=== PATIENT | female | born 1975 | race Caucasian/White ===

== ENCOUNTER 2017-02-15 10:43 | Emergency (ER) | payer OTHER ==
[2017-02-15 12:42] LABS: % IMMATURE GRANULYOCYTES 0.2 % (0.0-1.1); ABSOLUTE IMMATURE GRANULOCYTES 0.02 10^3/uL (0.00-0.10); ADD DIFF? NO; ADD MORPH? NO; ADD SCAN? NO; ATYPICAL LYMPHOCYTE FLAG 20 (0-99); FRAGMENT RBC FLAG 0 (0-99); HEMATOCRIT 47.3 % (38.0-47.0); HEMOGLOBIN 15.7 g/dL (12.6-16.3); LEFT SHIFT FLG 0 (0-99); LIPEMIA HEMOLYSIS FLAG 80 (0-99); MEAN CELL HEMOGLOBIN CONCENTR. 33.2 g/dL (32.4-36.7); MEAN CELL VOLUME 93.5 fL (81.5-99.8); MEAN PLATELET VOLUME 11.8 fL (8.7-11.7); PLATELET CLUMPS FLAG 0 (0-99); PLATELET COUNT 247 10^3/uL (150-400); RED BLOOD CELL COUNT 5.06 10^6/uL (4.18-5.33); RED CELL DISTRIBUTION WIDTH 13.5 % (11.5-15.2)
[2017-02-15 12:48] LABS: ALANINE AMINOTRANSFERASE 19 IU/L (9-52); ALBUMIN 4.9 g/dL (3.5-5.0); ALKALINE PHOSPHATASE 86 IU/L (38-126); ANION GAP 13 mEq/L (8-16); ASPARTATE AMINOTRANSFERASE 28 IU/L (14-46); BILIRUBIN,TOTAL 0.7 mg/dL (0.1-1.4); BILIRUBIN-CONJUGATED 0.6 mg/dL (0.0-0.5); BILIRUBIN-UNCONJUGATED 0.1 mg/dL (0.0-1.1); CARBON DIOXIDE 23 mEq/l (22-31); CHLORIDE 110 mEq/L (97-110); CREATININE 0.7 mg/dL (0.6-1.0); GLOMERULAR FILTRATION RATE > 60; GLUCOSE 78 mg/dL (70-100); SODIUM 146 mEq/L (134-144); TOTAL PROTEIN 8.3 g/dL (6.3-8.2)
--- NOTE | 2017-02-15 12:51 | EDPHY ---
H & P <Fanny Dave M - Last Filed: 02/16/17 00:26> Stated Complaint: ms flare up increasing numbness and weakness Source: Patient Exam Limitations: No limitations - Personal History LMP (Females 10-55): IUD In Place Current Tetanus/Diphtheria Vaccine: Unsure - Medical/Surgical History Hx Asthma: No Hx Chronic Respiratory Disease: No Hx Diabetes: No Hx Cardiac Disease: No Hx Renal Disease: No Hx Cirrhosis: No Hx Alcoholism: No Hx HIV/AIDS: No Hx Splenectomy or Spleen Trauma: No Other PMH: ms bipolar depression addhd - Family History Significant Family History: No pertinent family hx - Social History Smoking Status: Current every day smoker Alcohol Use: Sober Drug Use: None <John Givens - Last Filed: 02/16/17 07:09> Time Seen by Provider: 02/15/17 12:00 HPI/ROS: CHIEF COMPLAINT: MS flare HISTORY OF PRESENT ILLNESS: Patient is a 41-year-old female who comes to the emergency department complaining of an MS flare. She states that last night she began having a burning sensation in her left upper back. She states that it "felt like a hot iron but did not burn". She has not had a fever. She has not had a headache. She also states that her legs feel slightly numb from waist down. This is also similar to previous MS flares. She can ambulate. She has normal strength and movement. REVIEW OF SYSTEMS: Constitutional: denies: chills, fever, recent illness, recent injury EENTM: denies: blurred vision, double vision, nose congestion Respiratory: denies: cough, shortness of breath Cardiac: denies: chest pain, irregular heart rate, lightheadedness, palpitations Gastrointestinal/Abdominal: denies: abdominal pain, diarrhea, nausea, vomiting, blood streaked stools Genitourinary: denies: dysuria, frequency, hematuria, pain Musculoskeletal: See HPI Skin: denies: lesions, rash, jaundice, bruising Neurological: denies: headache, numbness, paresthesia, tingling, dizziness, weakness Hematologic/Lymphatic: denies: blood clots, easy bleeding, easy bruising Immunologic/allergic: denies: HIV/AIDS, transplant EXAM: GENERAL: Well-appearing, well-nourished and in no acute distress. HEAD: Atraumatic, normocephalic. EYES: Pupils equal round and reactive to light, extraocular movements intact, sclera anicteric, conjunctiva are normal. ENT: TMs normal, nares patent, oropharynx clear without exudates. Moist mucous membranes. NECK: Normal range of motion, supple without lymphadenopathy or JVD. LUNGS: Breath sounds clear to auscultation bilaterally and equal. No wheezes rales or rhonchi. HEART: Regular rate and rhythm without murmurs, rubs or gallops. ABDOMEN: Soft, nontender, normoactive bowel sounds. No guarding, no rebound. No masses appreciated. BACK: No CVA tenderness, no spinal tenderness, step-offs or deformities EXTREMITIES: Normal range of motion, no pitting or edema. No clubbing or cyanosis. NEUROLOGICAL: Cranial nerves II through XII grossly intact. Normal speech, normal gait. 5/5 strength, normal movement in all extremities, normal sensation PSYCH: Normal mood, normal affect. Normal cerebellar exam, can stand on Tippy toes. Some slight Difficulty with balance SKIN: Warm, dry, normal turgor, no visible rashes or lesions. (John Givens) Constitutional: Initial Vital Signs Temperature (C) 36.9 C 02/15/17 10:48 Heart Rate 94 02/15/17 10:48 Respiratory Rate 17 02/15/17 10:48 Blood Pressure 130/78 H 02/15/17 10:48 O2 Sat (%) 98 02/15/17 10:48 O2 Delivery Mode Room Air O2 (L/minute) 2 Allergies/Adverse Reactions: Penicillins Allergy (Verified 02/15/17 10:46) Home Medications: Medication Instructions Recorded ALPRAZolam [Xanax] 2 mg PO 08/13/16 ARIPiprazole [Abilify 5 mg (*)] 15 mg PO DAILY 08/13/16 Dextroamphetamine/Amphetamine 10 mg PO DAILY PRN 08/13/16 [Adderall 10 mg Tablet] Levothyroxine [Synthroid 112 mcg 112 mcg PO DAILY06 08/13/16 (*)] Lisdexamfetamine Dimesylate 60 mg PO DAILY 08/13/16 [Vyvanse] Zolpidem Tartrate [Ambien 5MG (*)] 5 mg PO HS 08/13/16 lamoTRIgine [LamICTAL XR] 300 mg PO 08/13/16 Copaxone 02/15/17 Provigil 02/15/17 Medical Decision Making - Diagnostics Imaging: Discussed imaging studies w/ mandrel press hand Radiologist <Fanny Dave - Last Filed: 02/16/17 00:26> <John Givens - Last Filed: 02/16/17 07:09> ED Course/Re-evaluation: I spoke with Dr. Mark who is asset protection professional. The patient's primary neurologist is Dr. White. At the [place] [facility] recommended the patient come in to get a workup during the flare. Dr. Constantino monte suggested that this would include an MRI with and without of her brain, cervical and thoracic spine. Also recommended we hold off on steroids until after her imaging. 1:40 p.m. the patient is very anxious about her MRI. She had to receive conscious sedation for her previous MRI. I am unable to sedate her for an emergent MRI from the emergency department. We discussed options. She is amenable to try Ativan. She has been walking around the apartment and went to get something to eat. 3:00 p.m. the patient is in MRI. Care transferred to Dr. Fanny Dave at shift change. (John Givens) Differential Diagnosis: Partial list of the Differential diagnosis considered include but were not limited to; MS exacerbation, viral syndrome, gastroenteritis, peptic ulcer disease, biliary disease and although unlikely based on the history and physical exam, I also considered pneumonia, Guillain-[place], spinal cord compression. (John Givens) Other Provider: 1500: I assumed care of this patient at shift change from Dr. Givens. 1700: Brain MRI show increasing plaque burden and lesion in thoracic spinal cord. 1g IV Solumedrol ordered. Neurology paged. 1723: Consulted with Dr. Mark, neurology. He agrees with plan for solumedrol and outpatient neurology follow up. 1731: Discussed findings with the patient and her mother. Her MRI showed enhancing lesions, which indicates active MS. She will require daily doses of 1g IV solumedrol, which she can arrange with Dr. Mark's office. She reports she is able to walk at home and feels safe going home. I answered all her questions. She is comfortable with plan for discharge. Return precautions given. (Fanny Dave) - Data Points Laboratory Results: Laboratory Results 02/15/17 10:55 02/15/17 10:55 Medications Given: Discontinued Medications Lorazepam (Ativan Injection) 3 mg IVP EDNOW ONE Stop: 02/15/17 13:44 Last Admin: 02/15/17 14:02 Dose: 3 mg Methylprednisolone Sodium Succinate (Solu-Medrol) 1,000 mg IVP EDNOW ONE Stop: 02/15/17 16:52 Last Admin: 02/15/17 17:29 Dose: Not Given Methylprednisolone Sodium Succinate (Solu-Medrol) 1 gm IV EDNOW ONE Stop: 02/15/17 17:31 Last Admin: 02/15/17 17:27 Dose: 1 gm Departure <Fanny Dave - Last Filed: 02/16/17 00:26> <John Givens - Last Filed: 02/16/17 07:09> - Departure Disposition: Home, Routine, Self-Care Clinical Impression: Multiple sclerosis Condition: Good Instructions: Methylprednisolone (By injection) Additional Instructions: 1. You will need 1gm IV Solumedrol every 24 hours for the next 5 days. Call NIHARIKA Duncan with Dr. Mark to set up appointments to receive this medication. 2. Follow up with your neurologist as scheduled. 3. Return to the ED for any worsening of condition. Referrals: Say Dee MD [Primary Care Provider] - As per Instructions Jose Duncan PA [Physician Freight Loader] - As per Instructions
[2017-02-15] MEDS ORDERED: LORazepam 2 MG/ML INJ IVP ONE (13:43)
[2017-02-15] MEDS ORDERED: GADOBUTROL 10 ML VIAL IVP ONE (14:28)
[2017-02-15] MEDS ORDERED: methylPREDNISolone SOD SUCC 125 MG/2 ML VIAL IVP ONE (16:51)
[2017-02-15] MEDS ORDERED: methylPREDNISolone SOD SUCC 1 GM/8 ML VIAL IV ONE (17:30)
[2017-02-15 18:05] VITALS: BP 128/78; PULSE 82; RESP 18; TEMP 98.1; O2SAT 96
== END 2017-02-15 18:05 | disposition home or self-care (01) ==
DX: G35 Multiple sclerosis (principal); F17.200 Nicotine dependence, unspecified, uncomplicated
CPT/HCPCS: 96374; A9585; J2060; J2930

== ENCOUNTER 2017-02-16 18:58 | Emergency (ER) | payer OTHER ==
[2017-02-16 19:14] VITALS: RESP 16; O2SAT 95
--- NOTE | 2017-02-16 19:16 | EDPHY ---
H & P Stated Complaint: steroid infusion Time Seen by Provider: 02/16/17 19:15 - Personal History LMP (Females 10-55): IUD [address] Current Tetanus/Diphtheria Vaccine: Unsure Current Tetanus Diphtheria and Acellular Pertussis (TDAP): Unsure - Medical/Surgical History Hx Asthma: No Hx Chronic Respiratory Disease: No Hx Diabetes: No Hx Cardiac Disease: No Hx Renal Disease: No Hx Cirrhosis: No Hx Alcoholism: No Hx HIV/AIDS: No Hx Splenectomy or Spleen Trauma: No Other PMH: ms bipolar depression addhd - Social History Smoking Status: Current every day smoker Constitutional: Initial Vital Signs Temperature (C) 37.5 C 02/16/17 19:12 Heart Rate 95 02/16/17 19:12 Respiratory Rate 16 02/16/17 19:12 Blood Pressure 114/73 02/16/17 19:12 O2 Sat (%) 95 02/16/17 19:12 O2 Delivery Mode Room Air Allergies/Adverse Reactions: Penicillins Allergy (Verified 02/16/17 19:10) Home Medications: Medication Instructions Recorded ALPRAZolam [Xanax] 2 mg PO 08/13/16 ARIPiprazole [Abilify 5 mg (*)] 15 mg PO DAILY 08/13/16 Levothyroxine [Synthroid 112 mcg 112 mcg PO DAILY06 08/13/16 (*)] Lisdexamfetamine Dimesylate 60 mg PO DAILY 08/13/16 [Vyvanse] Zolpidem Tartrate [Ambien 5MG (*)] 5 mg PO HS 08/13/16 lamoTRIgine [LamICTAL XR] 300 mg PO 08/13/16 Copaxone 02/15/17 Provigil 02/15/17 Medical Decision Making ED Course/Re-evaluation: CHIEF COMPLAINT: MS flare-up HISTORY OF PRESENT ILLNESS: This patient is a 41-year-old female with history of MS who presents to the Emergency Department requesting a steroid infusion to treat a MS flare-up beginning Tuesday evening. Her flare presented with new onset burning paresthesias to her back and bilateral paresthesias to both legs. She was seen yesterday in the ED and started on steroid infusion at that time and was told to return for subsequent treatment today. She has no new complaints. She has had recent MRI of brain and cervical spine and is followed regularly by Dr. White, neurologist. REVIEW OF SYSTEMS: A 10 point review of systems was performed and is negative with the exception of the elements mentioned in the history of present illness. PHYSICAL EXAM: General Appearance: Alert, well hydrated, appropriate, and non-toxic appearing. Head: Atraumatic without scalp tenderness or obvious injury Eyes: Pupils equal, round, reactive to light and accommodation, EOMI, no trauma , no injection. Ears: Clear bilaterally, no perforation, normal landmarks Nose: Atraumatic, no rhinorrhea, clear. Throat: There is no erythema or exudates, no lesions, normal tonsils, mucus membranes moist. Neck: Supple, 2+ carotid upstroke, nontender, no lymphadenopathy. Respiratory: No retractions, no distress, no wheezes, and no accessory muscle use. Lungs are clear to auscultation bilaterally. Cardiovascular: Regular rate and rhythm, no murmurs, rubs, or gallops. Bilateral carotid, radial, dorsalis pedis, and posterior tibial pulses intact. Good capillary refill all extremities. Gastrointestinal: Abdomen is soft, nontender, non-distended, no masses, no rebound, no guarding, no peritoneal signs. Musculoskeletal: Normal active ROM of all extremities, atraumatic. Neurological: Alert, appropriate, and interactive. The patient has normal DTRs and non-focal cranial nerves, motor, sensory, and cerebellar exam. Skin: No rashes, good turgor, no nodules on palpation. Past medical history: MS, depression, bipolar disorder Past surgical history: Denies Family history: Non-contributory Social history: MEDICAL DECISION MAKING: This 41-year-old female with MS presents as instructed by her neurologist, Dr. White, requesting IV administration of steroids to treat MS flare. She was seen yesterday and received her first dose of 1gm IV prednisolone. She presents today with no acute complaints. Her exam is benign. Will proceed with administration of steroids as requested. IV established. 1gm IV prednisolone administered. The patient was discharged home in good condition following treatment with instructions to continue the treatment plan as instructed by Dr. White. Departure - Departure Disposition: Home, Routine, Self-Care Clinical Impression: Multiple sclerosis Condition: Good Instructions: Prednisolone (By injection), Autoimmune Disease (ED) Additional Instructions: Return to the ER for additional steroids as directed by your neurologist. Follow -up with Dr. White for further evaluation and treatment if your symptoms persist. Referrals: Say Dee MD [Primary Care Provider] - As per Instructions
[2017-02-16] MEDS ORDERED: methylPREDNISolone SOD SUCC 1 GM in NS 100 ML IV ONE (19:20)
[2017-02-16 20:23] VITALS: BP 118/76; PULSE 81; TEMP 96.8
== END 2017-02-16 20:32 | disposition home or self-care (01) ==
DX: G35 Multiple sclerosis (principal); F17.200 Nicotine dependence, unspecified, uncomplicated
CPT/HCPCS: 96365; J2930

== ENCOUNTER 2017-02-17 13:57 | Emergency (ER) | payer OTHER ==
[2017-02-17] MEDS ORDERED: methylPREDNISolone SOD SUCC 125 MG/2 ML VIAL IVP ONE (15:11)
--- NOTE | 2017-02-17 15:20 | EDPHY ---
H & P Time Seen by Provider: 02/17/17 14:52 HPI/ROS: CHIEF COMPLAINT: Here for IV infusion of Solu-Medrol HISTORY OF PRESENT ILLNESS: 41-year-old female history of multiple sclerosis presents to the emergency department for dose 3. Of 3 of Solu-Medrol 1 g IV for acute multiple sclerosis flare. She is followed by Dr. Wilber WhiteNeurologarian. She has had recent MRI and cervical spine. She denies acute complaints. She does complain of numbness from the chest distally and memory issues. Denies headache. Denies nausea or. REVIEW OF SYSTEMS: A ten point review of systems was performed and is negative with the exception of the items mentioned in the HPI PAST MEDICAL & SURGICAL HISTORY: Multiple sclerosis SOCIAL HISTORY: Nonsmoker PHYSICAL EXAM (Prior to examination, patient consented to physical exam, hands were washed and my usual and customary physical exam procedures followed) 1) GENERAL: Well-developed, well-nourished, alert and oriented. Answering questions appropriately. 2) HEAD: Normocephalic, atraumatic 3) HEENT: . Sclera anicteric. 4) NECK: Full range of motion 5) LUNGS: Breathing comfortably 6) HEART: Regular rate and rhythm 7) ABDOMEN: No guarding, 8) MUSCULOSKELETAL: Moving all extremities 9)SKIN: No rash, no petechiae. 10) Psychiatric: Patient is oriented X 3, there is no agitation. DIFFERENTIAL DIAGNOSIS: in no particular include but limited to multiple sclerosis flare, relapsing remitting multiple sclerosis, progressive multiple sclerosis Smoking Status: Current every day smoker Constitutional: Initial Vital Signs Temperature (C) 37.1 C 02/17/17 14:18 Heart Rate 62 02/17/17 14:18 Respiratory Rate 15 02/17/17 14:18 Blood Pressure 116/57 L 02/17/17 14:18 O2 Sat (%) 98 02/17/17 14:18 O2 Delivery Mode Room Air Allergies/Adverse Reactions: Penicillins Allergy (Verified 02/16/17 19:10) Home Medications: Medication Instructions Recorded ALPRAZolam [Xanax] 2 mg PO 08/13/16 ARIPiprazole [Abilify 5 mg (*)] 15 mg PO DAILY 08/13/16 Levothyroxine [Synthroid 112 mcg 112 mcg PO DAILY06 08/13/16 (*)] Lisdexamfetamine Dimesylate 60 mg PO DAILY 08/13/16 [Vyvanse] Zolpidem Tartrate [Ambien 5MG (*)] 5 mg PO HS 08/13/16 lamoTRIgine [LamICTAL XR] 300 mg PO 08/13/16 Copaxone 02/15/17 Provigil 02/15/17 MDM/Departure - [facility] ED Course/Re-evaluation: This patient has received dose 3 of 3 of Solu-Medrol 1 g IV and will have the home health nurse follow-up tomorrow and will follow up with Dr. Eric White. - Depart Disposition: Home, Routine, Self-Care Clinical Impression: Multiple sclerosis Condition: Good Instructions: Autoimmune Disease (ED) Referrals: Eric White MD [Medical Doctor] - 1-2 days without fail
[2017-02-17] MEDS ORDERED: methylPREDNISolone SOD SUCC 1 GM in D5W 100 ML IV ONE (16:00)
[2017-02-17 17:11] VITALS: BP 122/69; PULSE 82; RESP 18; TEMP 97.7; O2SAT 96
== END 2017-02-17 17:10 | disposition home or self-care (01) ==
DX: G35 Multiple sclerosis (principal); F17.200 Nicotine dependence, unspecified, uncomplicated
CPT/HCPCS: 96365; J2930

== ENCOUNTER 2017-03-02 11:32 | Inpatient (IN) | payer OTHER ==
--- NOTE | 2017-03-02 12:41 | EDPHY ---
H & P Stated Complaint: ms flare up/bladder incontinence/trouble moving legs Time Seen by Provider: 03/02/17 12:38 HPI/ROS: CHIEF COMPLAINT: Leg numbness, inability to walk. HISTORY OF PRESENT ILLNESS: The patient is a 41-year-old female with a history of multiple sclerosis who presents with lower extremity numbness and weakness as well as abdominal numbness to the level of the xiphoid. Patient began having difficulty walking without assistance 2 days ago. This is similar in nature to her previous flare-ups, which often consist of numbness in her lower extremities, however, this is the 1st time she has had inability to walk without assistance. Her last flare-up was 2-3 weeks ago, consisting only of numbness, and she improved with 3 days of steroid injections. She was able to walk on her own at that time but is unable to today. She admits associated urinary incontinence. She describes 3 episodes of thoracic back pain and vomiting last week that she has been treating successfully with Gabapentin. No fever, chills, chest pain, shortness of breath, palpitations, vomiting, diarrhea , headache, lightheadedness. REVIEW OF SYSTEMS: Aside from elements discussed in the HPI, a comprehensive 10-point review of systems was reviewed and is negative. PAST MEDICAL HISTORY: Multiple sclerosis. SOCIAL HISTORY: Nonsmoker. VITAL SIGNS: Reviewed by me GENERAL: Well-developed, well-nourished, resting comfortably in no respiratory distress. HEENT: Atraumatic. Eyes: No icterus, no injection. Mouth: moist mucous membranes. No erythema or lesions. Neck: supple with no adenopathy. LUNGS: Clear to auscultation bilaterally, no wheezes, rhonchi or rales. CARDIAC: Regular rate and rhythm, no rubs, murmurs or gallops. ABDOMEN: Soft, nontender, nondistended, bowel sounds normal. BACK: No CVA tenderness. EXTREMITIES: No trauma. No edema. Range of motion is normal throughout. NEURO: Alert and oriented x3. Motor strength 5/5 in the upper extremities. Sensation is normal in the upper extremities. Cranial nerves 2-12 are intact. Patient has numbness from the level of the xiphoid distally. In her lower extremities her strength is 2/5 in right lower extremity, 1/5 in left lower extremity. SKIN: Warm and dry, no rash. PSYCHIATRIC: Normal mentation, no agitation. Portions of this note were transcribed by a medical support assistant. I personally performed a history, physical exam, medical decision making, and confirmed accuracy of information the transcribed note. Source: Patient Exam Limitations: No limitations - Personal History LMP (Females 10-55): IUD In Place Current Tetanus/Diphtheria Vaccine: Unsure - Medical/Surgical History Hx Asthma: No Hx Chronic Respiratory Disease: No Hx Diabetes: No Hx Cardiac Disease: No Hx Renal Disease: No Hx Cirrhosis: No Hx Alcoholism: No Hx HIV/AIDS: No Hx Splenectomy or Spleen Trauma: No Other PMH: ms bipolar depression addhd - Social History Smoking Status: Current every day smoker Constitutional: Initial Vital Signs Temperature (C) 36.6 C 03/02/17 11:36 Heart Rate 98 03/02/17 11:36 Respiratory Rate 20 03/02/17 11:36 Blood Pressure 121/79 H 03/02/17 11:36 O2 Sat (%) 99 03/02/17 11:36 O2 Delivery Mode Room Air Allergies/Adverse Reactions: Penicillins Allergy (Verified 03/02/17 11:35) Home Medications: Medication Instructions Recorded Zolpidem Tartrate [Ambien 5MG (*)] 5 mg PO HS 08/13/16 Glatiramer Acetate [Copaxone] 40 mg SQ Q2D 02/15/17 Modafinil [Provigil 100 mg (*)] 200 mg PO DAILY 02/15/17 ARIPiprazole [Abilify] 15 mg PO HS 03/02/17 Acetaminophen [Tylenol 325mg (*)] 325 mg PO DAILY PRN 03/02/17 Gabapentin [Neurontin 100 MG (*)] 100 mg PO BID@08,12 03/02/17 Gabapentin [Neurontin 300 MG (*)] 300 mg PO HS 03/02/17 Levothyroxine [Synthroid 125 mcg 125 mcg PO DAILY06 03/02/17 (*)] Lisdexamfetamine Dimesylate 70 mg PO DAILY 03/02/17 [Vyvanse] Nicotine Polacrilex [Nicorette] 4 mg BC PRN PRN 03/02/17 lamoTRIgine [LamICTAL 100 MG (*)] 300 mg PO HS 03/02/17 Medical Decision Making ED Course/Re-evaluation: 41-year-old female with multiple sclerosis presents with progressively worsening leg numbness and urinary incontinence for the past 2-3 days. Her most recent flare-up consisted of numbness of her lower extremities without weakness or urinary incontinence. This was 2 weeks ago. On exam she has 2/5 movement in her RLE and 1/5 in the left. She is numb below her xiphoid process. Her neurologist has been paged. An IV was established. 1gm IV Solu-Medrol administered. 1326: Consulted with Dr. Souza, neurology. He recommends steroid treatment and admission. 1433: Consulted with Dr. Miller, hospitalist. She accepts admission. Differential Diagnosis: Differential diagnoses for the patient's symptom complex was considered including but not limited to multiple sclerosis flare, Guillain-[place], disc herniation, electrolyte abnormality, infection.. - Data Points Medications Given: Discontinued Medications Methylprednisolone Sodium Succinate 1 gm/ Sodium Chloride 108 mls @ 108 mls/hr IV EDNOW ONE Stop: 03/02/17 13:57 Last Admin: 03/02/17 13:46 Dose: 108 mls Lorazepam (Ativan Injection) 1 - 3 mg IVP ONCE ONE Stop: 03/02/17 16:46 Last Admin: 03/02/17 17:08 Dose: 2 mg Departure - Departure Disposition: [facility] Inpatient Acute Clinical Impression: Multiple sclerosis exacerbation, Inability to walk, Lower extremity numbness Weakness of lower extremity Qualifiers: Laterality: bilateral Qualified Code(s): R29.898 - Other symptoms and signs involving the musculoskeletal system Condition: Fair Report Scribed for: Fanny Dave Report Scribed by: Bishop Malik Date of Report: 03/02/17 Time of Report: 12:42
[2017-03-02] MEDS ORDERED: methylPREDNISolone SOD SUCC 1 GM in NS 100 ML IV ONE (12:58)
[2017-03-02 13:50] LABS: % IMMATURE GRANULYOCYTES 0.4 % (0.0-1.1); ABSOLUTE IMMATURE GRANULOCYTES 0.04 10^3/uL (0.00-0.10); ADD DIFF? NO; ADD MORPH? NO; ADD SCAN? NO; ATYPICAL LYMPHOCYTE FLAG 10 (0-99); FRAGMENT RBC FLAG 0 (0-99); HEMATOCRIT 47.4 % (38.0-47.0); LEFT SHIFT FLG 0 (0-99); LIPEMIA HEMOLYSIS FLAG 90 (0-99); MEAN CELL HEMOGLOBIN 31.1 pg (27.9-34.1); MEAN CELL HEMOGLOBIN CONCENTR. 33.8 g/dL (32.4-36.7); MEAN PLATELET VOLUME 11.4 fL (8.7-11.7); PLATELET CLUMPS FLAG 0 (0-99); PLATELET COUNT 201 10^3/uL (150-400); RED BLOOD CELL COUNT 5.15 10^6/uL (4.18-5.33)
[2017-03-02 14:16] LABS: ANION GAP 13 mEq/L (8-16); CALCIUM 9.8 mg/dL (8.5-10.4); CARBON DIOXIDE 19 mEq/l (22-31); CHLORIDE 107 mEq/L (97-110); CREATININE 0.8 mg/dL (0.6-1.0); GLOMERULAR FILTRATION RATE > 60; GLUCOSE 87 mg/dL (70-100); POTASSIUM 4.7 mEq/L (3.5-5.2); SODIUM 139 mEq/L (134-144); SPECIMEN HEMOLYSIS 125
[2017-03-02] MEDS ORDERED: ACETAMINOPHEN 325 MG TAB PO PRN (14:46)
[2017-03-02] MEDS ORDERED: ONDANSETRON 4 MG/2 ML VIAL IVP PRN (14:46)
[2017-03-02] MEDS ORDERED: ONDANSETRON DISINTEGRATING 4 MG TAB PO PRN (14:46)
[2017-03-02] MEDS ORDERED: NICOTINE 14 MG/24 HR PATCH TD SCH (16:15)
[2017-03-02] MEDS ORDERED: NICOTINE POLACRILEX 2 MG GUM B PRN (16:21)
[2017-03-02] MEDS ORDERED: LORazepam 2 MG/ML INJ IVP ONE (16:45)
[2017-03-02] MEDS: GABAPENTIN 100 MG CAP PO SCH (17:06)
[2017-03-02] MEDS ORDERED: GADOBUTROL 10 ML VIAL IVP ONE (17:49)
--- NOTE | 2017-03-02 19:44 | GHP ---
[f rep st] HISTORY AND PHYSICAL DATE OF ADMISSION: 03/02/2017 CHIEF COMPLAINT: Left leg numbness. Falls. HISTORY OF PRESENT ILLNESS: A 41-year-old female with a history of multiple sclerosis presenting wi th lower extremity numbness and weakness, along with abdominal numbness to the xiphoid. She began h aving difficulty walking without assistance 2 days ago. This was similar to prior flare-ups in [facility] she has numbness in her legs. This is the first time she had so many problems walking. She had 2 falls yesterday and she was using her cane both times. The first one was inside holding onto the c ounter when she fell on her buttocks. The second time she when was outside and fell back on a step. Did not hit her head. Scraped her elbows. Her last flare was 2-3 weeks ago consisting of only numbness. She completed 3 days of steroids, the last being on 02/17/2017. After that, she was able to walk, but was wobbly, using either a cane or walker. She has had urinary incontinence. She described a severe thoracic back pain, like an iron being heated and stuck under her shoulder blades. She has had intermittent uncontrollable vomiting . Denies any fevers, chills, or sweats. Has felt hot. The patient has been under lot of stress. She is recently going through a divorce and has lost her job. REVIEW OF SYSTEMS: I completed a 10-point review of systems. Negative, except as noted in HPI. PAST MEDICAL HISTORY: Multiple sclerosis. PAST SURGICAL HISTORY: None. SOCIAL HISTORY: She lives in [place]. She is getting . Has a 12-year-old son. Smokes re gularly. No alcohol or illicits. FAMILY HISTORY: Maternal grandfather with colon cancer. Paternal grandfather with a heart attack. Dad healthy. ALLERGIES: Penicillin. HOME MEDICATIONS: Nicotine patch, Tylenol as needed, Abilify 50 mg q.h.s., levothyroxine 125 mcg, L amictal 300 mg q.h.s., Ambien 5 mg q.h.s., Provigil 200 mg daily, Vyvanse 70 mg daily, gabapentin 30 0 mg q.h.s., 100 mg p.o. b.i.d. (8 and 12). PHYSICAL EXAM: VITAL SIGNS: Temperature 37, blood pressure 115/66, heart rate 75, respirations 16, 97% on room air. GENERAL: The patient is groggy, just underwent MRI and was dosed 2 mg of Ativan. HEENT: PERRLA. EOMI. Oropharynx clear. CV: Regular rate and rhythm. No murmurs, gallops, rub s. LUNGS: Clear to auscultation bilaterally. ABDOMEN: Soft. Minimal sensation to touch. Positi ve bowel sounds. : No Nice. MUSCULOSKELETAL: 0/5 lower extremity strength. NEURO: Cranial n erves II through XII intact. No sensation to touch from xiphoid to the dorsum of foot. She has min imal sensation in her toes upon touch. PSYCH: Alert and oriented x3. Groggy and slow in answering questions. LABS: WBC 9, hemoglobin 16, hematocrit 47, platelets 201. Sodium 139, potassium 4.7 chloride 107, carbon dioxide 19, creatinine 0.8, glucose 87, calcium 9.8. ASSESSMENT AND PLAN: 1. Multiple sclerosis pseudo flare versus flare: Patient was evaluated by Dr. Souza with Neurology. She has had increased stressors, including going through a divorce and job loss, that may have trig gered the symptoms. She had an MRI performed that showed signal intensity at T8-T9 without enhancem ent. MRI here today demonstrates new demyelinating plaque extending from T2 through T4. Will treat as a flare with Solu-Medrol 1 g daily for 3 days. Have PT/OT work with her while here. 2. Neuropathy: Can up-titrate gabapentin to 300 mg t.i.d. Patient declined at this time. 3. Tobacco abuse: Nicorette gum. Nicotine patch as needed. She has bad dreams with a patch. 4. Falls: Secondary to weakness given acute flare. PT/OT. 5. Diet: Regular. 6. Deep venous thrombosis prophylaxis: Lovenox. DISPOSITION: Patient warrants inpatient admission given acute MS flare warranting IV steroids, PT/O T to prevent subsequent falls and risk of further injury. /[id number]/MODL
[2017-03-02] MEDS: ZOLPIDEM TARTRATE 5 MG TAB PO SCH (21:46)
[2017-03-02] MEDS: lamoTRIgine 100 MG TAB PO SCH (21:47)
[2017-03-02] MEDS: GABAPENTIN 300 MG CAP PO SCH (21:47)
--- NOTE | 2017-03-02 22:00 | GCON ---
[f rep st] CONSULTATION NEUROLOGY CONSULTATION DATE OF CONSULTATION: 03/02/2017 TIME SPENT: 70 total minutes on the floor today reviewing her outpatient records, recent inpatient records, in direct examination counseling with the patient, including reviewing MRI images with her. CHIEF COMPLAINT: Multiple sclerosis. HISTORY OF PRESENT ILLNESS: The patient is a very pleasant 41-year-old lady originally from [place] who has lived in [place] for many years now. She has a diagnosis of multiple sclerosis and is managed by my colleague as an outpatient. NIHARIKA Eaton and Dr. Eric White. She is on Copaxone 40 mg 3 days a week subcutaneously. She is in the process of being switched to [employer] for disease modifying therapy. Her outpatient neurology providers are currently going to through the preauthorization process. She had some decline starting weeks ago in the setting of severe stress including her letting her know that he is requesting divorce, and most recently, she lost her job of 7 or 8 years just yesterday I believe. She had done well from her recent evaluation at the end of January, with IV steroids but then started declining again 5 days ago. She started vomiting initially with spikes of neurogenic pain, but ultimately developed numbness from below her breasts down to both legs, along with weakness to the point where she was unable to ambulate and started having urinary incontinence. Therefore, she was advised came to the emergency department. Her MRIs just 2 weeks ago showed 3 small new enhancing lesions in her brain. No lesions in her cervical spine, and an old lesion in her thoracic spine at T8-T9. She is very clear that she has a sensory level beginning right below her breast and above her umbilicus, along with bilateral lower extremity weakness and numbness maximal in the left leg. REVIEW OF SYSTEMS: Ten-point review of system was done only pertinent to HPI. PAST MEDICAL HISTORY: Multiple sclerosis, hypothyroidism, bipolar disorder, unexplained uveitis in the past. HOME MEDICATIONS: Includes Copaxone 40 mg 3 times a week, gabapentin started recently for neurogenic pain, Abilify, Ambien, Lamictal, Provigil, Vyvanse. PHYSICAL EXAMINATION: VITAL SIGNS: 115/66 blood pressure, afebrile at 36.3, O2 sats 97%, heart rate 75, regular. GENERAL: No acute distress. Very pleasant lady, higher mental function. She is awake and alert, has no obvious cognitive abnormalities. No aphasia. NEUROLOGIC: Cranial nerve exam normal 2 through 7, 11, and 12. She has no efferent pupillary defect. No internuclear ophthalmoplegia. On motor exam, she has significant weakness in her lower extremities. At her anterior tibialis they are 1 to 2/5 bilaterally, worse in the left anterior tibialis. With hip extension she can lift it against gravity minimally. She has negative plantar reflex bilaterally present, 1+ at the ankles bilaterally and 2+ at the knees bilaterally. In her upper extremities, she has normal tone strength and reflexes in both arms. On sensory exam, she has a sensory level around T7, with loss of light touch in a bandlike distribution around dermatome level T7 downward. Coordination normal in upper extremities. IMPRESSION/PLAN: 1. Multiple sclerosis. 2. Subacute sensory-motor decline in lower extremities. 3. T7-T8 sensory level This patient has an established diagnosis of multiple sclerosis. Her recent extensive MRI evaluation on February 15, 2017 revealed an old plaque at the level of T8-T9. Therefore, the question is whether this is a pseudo-exacerbation from the enormous amounts of stress she has been under along with increased temperature, as her home has been very hot according to patient, or is this a new lesion in the thoracic cord. This would localize to the T7 and T8 region. This was discussed at length with the patient. She received 1 g of Solu-Medrol in the Emergency Department. We will complete a 3 day course giving her 1 g daily for the next two days. She will need deep venous thrombosis prophylaxis and gastrointestinal prophylaxis, as she is nonambulatory now. We will continue gabapentin as prescribed. If she has increased neuropathic pain, we can increase to 300 mg three times daily. We discussed potential risks, benefits, alternatives of this dosage increase. We will check a thoracic MRI with and without contrast. I have written for a 1 time dose of intravenous lorazepam as she has claustrophobia. We will involve occupational therapy and physical therapy for aggressive therapies with her. I will follow up on all of the above. Please do not hesitate to call me with any questions about my thoughts or findings regarding this very pleasant patient. We will follow along. Thank you for this consultation. /[id number]/MODL MTDD
[2017-03-02] MEDS: ARIPIPRAZOLE 15 MG PO SCH (22:19)
[2017-03-02 22:53] LABS: COLOR YELLOW; LEUKOCYTE ESTERASE,URINE TRACE (NEGATIVE); NITRITE,URINE NEGATIVE (NEGATIVE)
[2017-03-02 23:00] LABS: BACTERIA 2+ /hpf (NONE SEEN); MUCUS TRACE /lpf (NONE-1+); RBC,URINE 50-182 /hpf (0-3); WBC,URINE 15-25 /hpf (0-3)
[2017-03-03 05:26] LABS: ANION GAP 8 mEq/L (8-16); CALCIUM 9.7 mg/dL (8.5-10.4); CARBON DIOXIDE 21 mEq/l (22-31); CHLORIDE 109 mEq/L (97-110); CREATININE 0.7 mg/dL (0.6-1.0); GLOMERULAR FILTRATION RATE > 60; GLUCOSE 153 mg/dL (70-100); POTASSIUM 4.1 mEq/L (3.5-5.2); SODIUM 138 mEq/L (134-144)
[2017-03-03] MEDS: LEVOTHYROXINE 125 MCG TAB PO SCH (08:01)
[2017-03-03] MEDS: GABAPENTIN 100 MG CAP PO SCH ×2 (08:01→14:23)
[2017-03-03] MEDS: Lisdexamfetamine Dimesylate [Vyvanse] 70 MG PO SCH (09:40)
[2017-03-03] MEDS: ENOXAPARIN 40 MG/0.4 ML SYR SC SCH (09:41)
[2017-03-03] MEDS: MODAFINIL 100 MG TAB PO SCH (09:41)
[2017-03-03] MEDS: methylPREDNISolone SOD SUCC 1 GM in D5W 100 ML IV SCH (09:42)
--- NOTE | 2017-03-03 13:40 | HOSPPROG ---
Hospitalist Progress Note Assessment/Plan: 41y female with c/o weakness. This is my first encounter. Chart reviewed. #MS flare cont IV steroids D#2/3 inpt rehab eval #Weakness needs rehab #Neuropathy stable #Tobacco cessation education #Dispo significant stressors d/w Cm rec social work consult DC in am after steroids Home with [facility] vs inpt rehab Subjective: Tearful. Frustrated. No pain. Objective: Vital Signs Temp Pulse Resp BP Pulse Ox 36.9 C 90 18 119/66 96 03/03/17 11:58 03/03/17 11:58 03/03/17 11:58 03/03/17 11:58 03/03/17 11:58 Laboratory Results 03/03/17 04:55 03/02/17 03/03/17 03/04/17 05:59 05:59 05:59 Intake Total 400 Output Total 210 Balance 190 - Physical Exam Constitutional: appears nourished, not in pain, other (tearful) Ears, Nose, Mouth, Throat: moist mucous membranes, hearing normal, ears appear normal Cardiovascular: No JVD, No tachycardia, No bradycardia Respiratory: no respiratory distress, no rales or rhonchi, reduced air movement Gastrointestinal: No tenderness, No ascites, No guarding Skin: warm, normal color, No erythema Musculoskeletal: normal joint ROM, no joint effusions, generalized weakness Neurologic: AAOx3 Psychiatric: not encephalopathic, thought process linear, anxious ICD10 Worksheet Patient Problems: Problems Problem Status Onset Multiple sclerosis exacerbation Acute Inability to walk Acute Lower extremity numbness Acute Weakness of lower extremity Acute
--- NOTE | 2017-03-03 15:57 | NEUROPROG ---
Assessment: 1. Multiple sclerosis 2. Multiple sclerosis relapse with new thoracic cord lesion, enhancing 35 total minutes floor time; over 50% counseling regarding the patient's MRI of her thoracic spine showing an enhancing lesion from T2-T4 explaining her subacute paraplegia with sensory level. Because of the severity of her deficit in localization to the thoracic spinal cord, we will extend her IV steroids to a total of 5 days of Solu-Medrol 1 g daily. Discussed this at length with patient. She will continue gabapentin for neurogenic pain. I have added NMO antibodies to check for neuromyelitis optica. Her primary neurologist will follow up with this as an outpatient. I directly signed out to her outpatient provider today. Recommendations: 1. Consider adding GI prophylaxis, such as Protonix 40 mg daily while on steroids 2. We are looking into placement inpatient rehab as soon as possible. She can finish IV steroids in inpatient rehabilitation if she can get to rehab prior to Tuesday. 3. DVT prophylaxis 4. Continue aggressive PT and OT while an inpatient here Subjective: No new symptoms, some mild improvement in the lower extremities She was able to walk today with assistance and take a shower. Objective: Vital Signs Temp Pulse Resp BP Pulse Ox 36.9 C 90 18 119/66 96 03/03/17 11:58 03/03/17 11:58 03/03/17 11:58 03/03/17 11:58 03/03/17 11:58 Laboratory Results 03/03/17 04:55 03/02/17 03/03/17 03/04/17 05:59 05:59 05:59 Intake Total 400 Output Total 210 Balance 190 Awake and alert No upper extremity or bulbar abnormalities Patient has lower extremity weakness, maximal left 2/5 right anterior tibialis, 3/5 left anterior tibialis Allergies/Adverse Reactions: Penicillins Allergy (Verified 03/02/17 11:35)
[2017-03-03] MEDS: GABAPENTIN 300 MG CAP PO SCH (20:12)
[2017-03-03] MEDS: ARIPIPRAZOLE 15 MG PO SCH (20:12)
[2017-03-03] MEDS: ZOLPIDEM TARTRATE 5 MG TAB PO SCH (20:12)
[2017-03-03] MEDS: lamoTRIgine 100 MG TAB PO SCH (20:12)
[2017-03-03] MEDS ORDERED: Glatiramer Acetate [Copaxone] 40 MG SQ SCH (21:00)
[2017-03-04 07:37] VITALS: TEMP 98
[2017-03-04] MEDS: MODAFINIL 100 MG TAB PO SCH (07:52)
[2017-03-04] MEDS: LEVOTHYROXINE 125 MCG TAB PO SCH (07:52)
[2017-03-04] MEDS: GABAPENTIN 100 MG CAP PO SCH ×2 (07:52→12:57)
[2017-03-04] MEDS: ENOXAPARIN 40 MG/0.4 ML SYR SC SCH (07:52)
[2017-03-04] MEDS: Lisdexamfetamine Dimesylate [Vyvanse] 70 MG PO SCH (08:28)
[2017-03-04] MEDS: methylPREDNISolone SOD SUCC 1 GM in D5W 100 ML IV SCH (08:28)
[2017-03-04] MEDS ORDERED: MAGNESIUM HYDROXIDE 30 ML UDCUP PO PRN (10:59)
[2017-03-04] MEDS ORDERED: POLYETHYLENE GLYCOL 3350 17 GM PKT PO PRN (10:59)
[2017-03-04] MEDS ORDERED: BISACODYL 10 MG SUPP PR PRN (10:59)
[2017-03-04] MEDS ORDERED: LACTULOSE 20 GM/30 ML UDCUP PO PRN (10:59)
[2017-03-04 12:18] VITALS: BP 127/58; PULSE 60; RESP 16; O2SAT 98
--- NOTE | 2017-03-04 14:21 | HOSPPROG ---
Hospitalist Progress Note Assessment/Plan: 41y female with c/o weakness. #MS flare cont IV steroids D#3/5 inpt rehab eval #Weakness needs rehab #Neuropathy stable #Tobacco cessation education #Dispo significant stressors d/w Cm rec social work consult DC to inpt rehab when insurance auth done Subjective: Tearful. Frustrated. Still having numbness. Objective: Vital Signs Temp Pulse Resp BP Pulse Ox 36.7 C 60 16 127/58 H 98 03/04/17 12:00 03/04/17 12:00 03/04/17 12:00 03/04/17 12:00 03/04/17 12:00 Laboratory Results 03/03/17 04:55 03/03/17 03/04/17 03/05/17 05:59 05:59 05:59 Intake Total 400 358 Output Total 210 400 Balance 190 -42 - Physical Exam Constitutional: appears nourished, chronically ill appearing, uncomfortable Eyes: PERRL, anicteric sclera, EOMI Ears, Nose, Mouth, Throat: moist mucous membranes, hearing normal, ears appear normal Cardiovascular: No JVD, No tachycardia, No edema Respiratory: no respiratory distress, no rales or rhonchi, reduced air movement Gastrointestinal: No tenderness, No ascites, No guarding Skin: warm, normal color, No erythema Musculoskeletal: no joint effusions, pain with ROM, generalized weakness Neurologic: AAOx3 Psychiatric: not encephalopathic, thought process linear, anxious ICD10 Worksheet Patient Problems: Problems Problem Status Onset Multiple sclerosis exacerbation Acute Inability to walk Acute Lower extremity numbness Acute Weakness of lower extremity Acute
--- NOTE | 2017-03-04 15:17 | GDS ---
[f rep st] DISCHARGE SUMMARY DISCHARGE DIAGNOSES: Multiple sclerosis exacerbation with flare. CONSULTATIONS: Neurology. STUDIES AND PROCEDURES DONE: Thoracic spine MRI. PHYSICAL EXAMINATION: GENERAL: The patient is alert. VITAL SIGNS: Afebrile at 36.7, pulse is 60, respiratory rate 16, blood pressure is 127/58. She is saturating 98% on room air. I have seen and evaluated the patient on the day of discharge. HOSPITAL COURSE: The patient is a 41-year-old female who presented to the emergency room with compl aints of lower extremity weakness. She was evaluated by Neurology, and an MRI was performed. It wa s noted the patient has multiple sclerosis relapse with a new thoracic cord lesion. During this hos pitalization, she was treated with IV Solu-Medrol 1 g daily for a total of 3 days, which has been ex tended to 5 days. The plan is for the patient to be discharged to inpatient rehab for further rehab ilitation. She will continue her IV steroids at inpatient rehab once she gets insurance authorizati on. She will follow up with Neurology. She does have a urine culture pending, but is asymptomatic of urinary tract infection. She also has been consulted on by foster care social worker and broadcast traffic coordinator during thi s hospitalization to assist with life stressors. I have discussed the patient's disposition with Ca se Management. She will await insurance authorization, and I anticipate the patient to be discharge d to inpatient rehabilitation. I spent greater than 35 minutes in the care, coordination and management of this patient's dispositi on. DISCHARGE MEDICATIONS: Please refer to EMR form. I have not adjusted the patient's previously pres cribed home medications to the best of my knowledge with the exception of IV Solu-Medrol 1 g daily t o be continued through March 06. /[id number]/MODL
--- NOTE | 2017-03-04 16:39 | PDIAF ---
- Diagnosis Diagnosis: ms flare Code Status: Full Code - Medication Management Discharge Medications: Medications to Continue on Transfer Zolpidem Tartrate [Ambien 5MG (*)] 5 mg PO HS 08/13/16 [Last Taken 03/01/17] Glatiramer Acetate [Copaxone] 40 mg SQ Q2D 02/15/17 [Last Taken Unknown] Modafinil [Provigil 100 mg (*)] 200 mg PO DAILY 02/15/17 [Last Taken 03/02/17] ARIPiprazole [Abilify] 15 mg PO HS 03/02/17 [Last Taken 03/01/17] Acetaminophen [Tylenol 325mg (*)] 325 mg PO DAILY PRN 03/02/17 [Last Taken Unknown] Gabapentin [Neurontin 100 MG (*)] 100 mg PO BID@,12 03/02/17 [Last Taken 03/02 08:00] Gabapentin [Neurontin 300 MG (*)] 300 mg PO HS 03/02/17 [Last Taken 03/01/17] Levothyroxine [Synthroid 125 mcg (*)] 125 mcg PO DAILY06 03/02/17 [Last Taken ] Lisdexamfetamine Dimesylate [Vyvanse] 70 mg PO DAILY 03/02/17 [Last Taken ] Nicotine Polacrilex [Nicorette] 4 mg BC PRN PRN 03/02/17 [Last Taken Unknown] lamoTRIgine [LamICTAL 100 MG (*)] 300 mg PO HS 03/02/17 [Last Taken 03/01/17] Acetaminophen [Tylenol 325mg (*)] 650 mg PO Q4HRS PRN #0 tab 03/04/17 [Last Taken Unknown] Enoxaparin [Lovenox 40 MG (*)] 40 mg SC DAILY syr 03/04/17 [Last Taken Unknown] Polyethylene Glycol 3350 [Miralax 17 gm (*)] 17 gm PO DAILY PRN #0 pkt 03/04/17 [Last Taken Unknown] Sennosides/Docusate Sodium [Senokot-S] 1 - 2 tab PO BID tab 03/04/17 [Last Taken Unknown] methylPREDNISolone SOD SUCC [Solu-Medrol 1 gm (*)] 1 gm IV DAILY #0 vial [Last Taken Unknown] Discharge Medications: Refer to the Discharge Home Medication list for PRN reason. PICC Care - Routine: N/A - Orders Services needed: Registered Nurse, Physical Therapy, Occupational Therapy Diet Recommendation: no restrictions on diet - Follow Up Care Current Providers and Referrals: Say Dee MD [Primary Care Provider] - As per Instructions
--- NOTE | 2017-03-04 16:43 | NEUROPROG ---
Assessment: 1. Multiple sclerosis 2. Multiple sclerosis relapse with new thoracic cord lesion, enhancing 35 total minutes floor time; over 50% counseling regarding the patient's demyelinating disease and current treatment. Today her was present and had many questions that I answered. Essentially, she is improved rapidly with IV steroids and now is ambulating fairly steadily with a walker. No side effects. Her neuropathic pain is entirely controlled gabapentin 100 mg the morning, 100 mg at noon and 300 mg at bedtime. I have added NMO antibodies to check for neuromyelitis optica. Her primary neurologist will follow up with this as an outpatient. Recommendations: 1. Consider adding GI prophylaxis, such as Protonix 40 mg daily while on steroids 2. placement inpatient rehab as soon as possible. She can finish IV steroids in inpatient rehabilitation if she can get to rehab prior to Tuesday. Steroids ( Solu-Medrol 1 gram IV daily) should be continued until Tuesday03/06/2017 (to complete 5 doses) 3. DVT prophylaxis 4. She will likely be discharged to inpatient rehabilitation later today or early tomorrow. Therefore, we will sign off and follow up p.r.n. Please do not hesitate to call if there are any questions or changes in neurologic status with this very pleasant patient. I have signed out her progress to her primary outpatient Neurology team. Subjective: Improving lower extremity weakness Objective: Vital Signs Temp Pulse Resp BP Pulse Ox 36.7 C 60 16 127/58 H 98 03/04/17 12:00 03/04/17 12:00 03/04/17 12:00 03/04/17 12:00 03/04/17 12:00 Laboratory Results 03/03/17 04:55 03/03/17 03/04/17 03/05/17 05:59 05:59 05:59 Intake Total 400 358 Output Total 210 400 Balance 190 -42 Patient is awake and alert She ambulated with a walker in my presence Allergies/Adverse Reactions: Penicillins Allergy (Verified 03/02/17 11:35)
[2017-03-04] MEDS ORDERED: SENNOSIDES/DOCUSATE SODIUM TAB PO SCH (21:00)
== END 2017-03-04 16:45 | DRG 60 ==
LOC: OBSVTOIN 14:46 → F3N 15:25
PROVIDERS: ADMIT Family Medicine; ATTEND Internal Medicine
DX: G35 Multiple sclerosis (principal); F17.210 Nicotine dependence, cigarettes, uncomplicated; F31.9 Bipolar disorder, unspecified; Z91.81 History of falling; Z56.0 Unemployment, unspecified; Z63.5 Disruption of family by separation and divorce
CPT/HCPCS: 96365; 97116-GP; 97161-GP; 97165-GO; 97530-GP; A9585; J1650; J2060; J2930

== ENCOUNTER 2017-03-04 17:50 | Inpatient (IN) | payer OTHER ==
[2017-03-04] MEDS ORDERED: MAGNESIUM HYDROXIDE 30 ML UDCUP PO PRN (18:18)
[2017-03-04] MEDS ORDERED: BENEFIBER/NUTRISOURCE FIBER PKT 1 EACH PO PRN (18:18)
[2017-03-04] MEDS ORDERED: MAGNESIUM CITRATE 300 ML BOTTLE PO PRN (18:24)
--- NOTE | 2017-03-04 18:51 | PDOREHIP ---
Admission [facility] - Admission - 3 Day Assessment Period Admission Date/Day 1: 03/04/17 Day 2: 03/05/17 Day 3: 03/06/17 - Active Diagnoses Comorbidities and Co-existing Conditions at Admission: 75726. None of the Above - Skin Conditions Unhealed Pressure Ulcer (1 or more/Stage 1 or >)-Admission: 0. No
--- NOTE | 2017-03-04 19:15 | PDGENHP ---
History and Physical History and Physical: Post admission physician evaluation and rehabilitation treatment plan Date Admit: 03/04/2017 Date and Time Eval: 03/04/2017, 5 PM Referring Facility: [facility] Referring MD: Dr. Reddy Consulting MDs: Dr. Souza Rehab Dx: 03.1 Multiple Sclerosis vs 04.111 nontraumatic spinal cord dysfunction , paraplegia incomplete Impairment Group/ Etiologic Dx: multiple sclerosis flare, spinal cord lesion Date Onset: 02/28/2017, admitted 03/02/2017 Date Surgery: not applicable CC: Paraplegia HPI: This is a 41-year-old female with a history of relapsing remitting multiple sclerosis diagnosed August 19, 2016 and some functional impairments at baseline, but living independently, who was diagnosed with a new spinal cord lesion from T2 to T4 on MRI after noticing difficulty walking starting 2016. She had a history of another flare approximately 2 to 3 weeks before admission that only included numbness, status post read a course of steroids that ended on 02/17/2017. At that time she was able to walk using a cane or walker and had some new impairments in sensation. Her course has also been complicated by urinary incontinence. She is currently undergoing a course of five days of Solu-Medrol, 1 g IV daily. She is followed by an outpatient neurologist (Perez), antibodies for NMO are still pending. Her hospital course was otherwise uncomplicated. Today, she endorses significant back pain and vomiting prior to admission, improved. She endorses incontinence of bladder, notes that she has not had a bowel movement in over two weeks. She notes that her neurological symptoms are slightly better now over the past couple of days, no worsening sense approximate 48 hours ago or more. Her mood is good, she is hopeful, and endorses a strong belief in Tay. Functional History: previously living independently, using an assistive device for gait but only in the last month or two. Currently she needs assistance with ADLs including min assistance for grooming, maximum assistance for dressing, and some level of assistance for bathing. Regarding mobility, she needs standby assistance for bed mobility, minimum assistance for transfers, using a wheeled walker. She is noted to have poor balance and endurance. She was walking 30 feet with minimum assistance. ROS: all other systems are negative except for as described above. No shortness of breath. Precautions: falls Active Comorbidities: neuropathy, tobacco use, steroid burst, and by history, depression, bipolar, anxiety, ADHD, sleep disorders, thyroid problems. PMH/PSH: multiple sclerosis, depression, bipolar, anxiety, ADHD, sleep disorder , thyroid problems. Family Hx: maternal grandfather had colon cancer and her paternal grandfather had a heart attack. Her mother had depression and bipolar disorder. Social Hx: currently lives in [place] in the process of getting a divorce. Has a 12-year-old son at home, smokes, approximately two alcoholic beverages per night, no drugs. It's a multilevel home with 2 to 4 stairs to enter, bedrooms on the second floor. She uses a front wheeled walker and a cane at home. She was previously working and driving, but not employed at the time of admission. Does not have current home care services. She was fired on Tuesday from her job. Allergies: penicillin - gets ulcers in her mouth Pre-Hosp Meds: nicotine patch Tylenol as needed Abilify 50 mg QHS levothyroxine 125 lamictal total 300 mg QHS Ambien 5 mg QHS Provigil 200 mg daily Vyvanse 70 mg daily gabapentin 300 mg every night as well as 100 mg PO BID at 8 AM and 12 noon Copaxone every three days, last was 03/03/2017 Admit Meds: acetaminophen 650 mg PO Q4 hours as needed for pain enoxaparin 40 mg subcutaneous daily polyethylene glycol 17 g orally daily as needed Senna/docusate 1 to 2 tabs orally twice daily methylprednisolone 1 g IV daily for five days total gabapentin 100 mg orally b.i.d. at eight and 12 aripiprazole 15 mg orally at bedtime levothyroxine 125 mcg daily lamotrigine 300 mg orally at bedtime Vyvanse 70 mg orally daily gabapentin 300 mg orally at bedtime acetaminophen 325 mg orally daily as needed nicotine 4 mg buccal as needed Copaxone every three days Physical Exam: VS: blood pressure 127/58, pulse of 60, respirations 16, two saturations were 98 % on room air, temperature was 36.7C~ GEN: Normally developed, resting in chair, NAD EYES: Anicteric, PERRL EARS, NOSE, MOUTH, THROAT: MMM, normal dentition CV: Heart RRR, no LE edema, extremities warm, but feet slightly discolored RESP: Breathing comfortably, lungs CTAB no wrr GI: Abd with +BS, distended : No bran in place, 150 cc on pvr MSK: no contracture noted SKIN: no rashes or skin breakdown noted PSYCH: appropriate, pleasant, cooperative; normal mood, affect and thought content. Denies any suicidal ideation HEME/LYMPH: No supraclavicular lymphadenopathy NEURO: Mental status: The patient is alert; oriented to self, hospital, city, date, month, year, and day; able to repeat 5 digits forward and 3 digits backwards; serial 7s intact to 5 trials, delayed recall of 3/3 words after 5 minutes; able to name a pen a clock and a TV; able to write a sentence with a subject and a verb; able to follow 3 step commands; and able to explain 2/2 similarities and one abstract concept. Cranial Nerves II-XII were intact and symmetric bilaterally, including no diplopia Strength was 5/5 and symmetric ~in bilateral biceps, triceps, wrist extensors, finger flexors, finger abductors. <3 in hip abductors, hip flexors, 4/5 knee extensors, 4/5 ankle dorsiflexors, 4/5 plantarflexors, and 4/5 EHL. Reflexes were 3+ symmetric in bi, tri, BR, patella, and achilles with upgoing toes bilaterally and absent hoffmans. + clonus in bilat ankles. Sensation was intact to light touch in the hands and decreased in the feet (with allodynia) with no evidence of neglect, and poor proprioception at the great toes and intact in thumbs. Rapid alternating movements was normal. Finger to nose was normal without dysmetria or tremor. I observed her transferring from wheelchair to bed with standby assistance from the nurse. Sensory level just below the breast Results Review: recent labs were reviewed and significant for an essentially normal metabolic panel with the exception of an elevated glucose at 153, UA was positive on 03/02/2017, CBC showed an elevated hematocrit at 47.4 but was otherwise relatively normal on 03/02. Microbiology showed no growth after 18 hours, preliminary result. MRI of the thoracic spine on 03/02 with and without contrast showed a new demyelinating lesion of the spinal cord from T2 through T4 with mild enhancement after contrast administration, new since the last MRI of the thoracic spine on February 15, 2017. They noted a small stable remote plaque at T8 T9. Assessment and Plan: This is a 41-year-old woman with a history of multiple sclerosis now with new impairments in mobility and self-care, decline from baseline, with a new spinal cord lesion from T2 to T4, similar to prior flareups per history. She is medically stable and ready for inpatient rehabilitation. She has limited help at home and will need to be modified- independent with equipment on discharge. She will continue her IV steroids on inpatient rehabilitation. Her overall prognosis is good, complicated by pre- existing multiple sclerosis and neuropathy. Otherwise she is relatively healthy. * Multiple sclerosis flair with non-traumatic spinal cord injury (T5 JOAO D) and functional paraplegia: methylprednisolone 1 g IV daily for total of five days (first dose on rehab will be 03/05, last day 03/06). Follow-up with outpatient neurologist for additional workup for NMO. Physical therapy and occupational therapy for impaired mobility and self-care. Continue medications for MS management. Spinal cord injury teaching. * Neuropathy: continue gabapentin, desensitization therapy * Tobacco use: continue nicotine and give cessation education * Neurogenic bladder: slightly elevated post void residual today, monitor closely. Place bran for residuals greater than 300, N bladder program. * Neurogenic bowel: patient reports no bowel movement in two weeks, we will be aggressive with suppository, possibly including mag citrate. Neurogenic bowel program * History of bipolar, anxiety, ADHD: continue home medications, monitor closely. No SI * Hypothyroid: continue levothyroxine * Code Status: Full Code * Contact: She states that she will be getting a divorce, but still designates her as the decision maker in the event she is not able * Proph: enoxaparin 40 mg subcutaneous, protonix 40 mg daily while on steroids * Skin: No breakdown, monitor * ELOS/ Dispo: 7 to 10 days, planning to discharge home with modified independence. The patient is medically stable for participation in inpatient rehabilitation. I have reviewed the Preadmission Screen, and do not identify any relevant changes in the patients status since this was completed. The patient is at high risk for DVT and falls, and we will provide DVT prophylaxis and fall prevention strategies. Additionally she's at high risk for a gastrointestinal bleed given her dose of steroids and we will give G.I. prophylaxis as well. The patient will benefit from comprehensive inpatient rehab therapies to address the functional goals above. I anticipate that this patient will make meaningful progress toward their rehab goals in a reasonable amount of time. Continued progress towards rehabilitation goals cannot be achieved at a lower level of care. The patient will receive physical therapy at 90 minutes per day 5 to 7 days per week for 7 to 10 days. The patient will also receive occupational therapy for 90 minutes a day, 5 to 7 days per week, for 7 to 10 days.
[2017-03-04] MEDS: PANTOPRAZOLE SODIUM 40 MG TAB PO SCH (21:45)
[2017-03-04] MEDS: lamoTRIgine 100 MG TAB PO SCH (21:48)
[2017-03-04] MEDS: GABAPENTIN 300 MG CAP PO SCH (21:48)
[2017-03-04] MEDS: SENNOSIDES/DOCUSATE SODIUM TAB PO SCH (21:48)
[2017-03-04] MEDS: ZOLPIDEM TARTRATE 5 MG TAB PO SCH (21:49)
[2017-03-04] MEDS: ARIPiprazole 5 MG TAB PO SCH (21:49)
[2017-03-04] MEDS ORDERED: BISACODYL 10 MG SUPP PR ONE (22:38)
[2017-03-04] MEDS: BISACODYL 10 MG SUPP PR SCH (22:42)
[2017-03-04] MEDS ORDERED: LORazepam 0.5 MG TAB PO PRN (23:32)
[2017-03-04] MEDS: ONDANSETRON DISINTEGRATING 4 MG TAB PO PRN (23:49)
[2017-03-05] MEDS: LEVOTHYROXINE 125 MCG TAB PO SCH (06:33)
[2017-03-05] MEDS: GABAPENTIN 100 MG CAP PO SCH ×2 (08:28→13:46)
[2017-03-05] MEDS: MODAFINIL 100 MG TAB PO SCH (08:28)
[2017-03-05] MEDS: Lisdexamfetamine Dimesylate [Vyvanse] 70 MG PO SCH (08:29)
[2017-03-05] MEDS: PANTOPRAZOLE SODIUM 40 MG TAB PO SCH (08:46)
[2017-03-05] MEDS ORDERED: Glatiramer Acetate [Copaxone] 40 MG SQ SCH ×2 (09:00)
[2017-03-05] MEDS ORDERED: METHYLPREDNISOLONE SOD SUCC IV SCH (09:00)
[2017-03-05] MEDS ORDERED: Lisdexamfetamine Dimesylate [Vyvanse] 70 MG PO SCH (09:00)
[2017-03-05] MEDS: methylPREDNISolone SOD SUCC 1 GM in D5W 100 ML IV SCH (09:13)
[2017-03-05] MEDS: ENOXAPARIN 40 MG/0.4 ML SYR SC SCH (09:18)
[2017-03-05] MEDS: SENNOSIDES/DOCUSATE SODIUM TAB PO SCH ×2 (09:21→20:24)
[2017-03-05] MEDS ORDERED: LORazepam 0.5 MG TAB PO PRN (10:46)
--- NOTE | 2017-03-05 11:15 | SOAPPROG ---
SOAP Progress Note Assessment/Plan: Assessment: This is a 41-year-old woman with a history of multiple sclerosis now with new impairments in mobility and self-care, decline from baseline, with a new spinal cord lesion from T2 to T4, with non-traumatic SCI and functional para. 03/05/2017 adjusting medications to accommodate schedule, working to get her Yael from a area pharmacy. Seeing progress with bowel program, nausea and vomiting likely related to profound constipation. Instituting timed voids and continuing bowel and bladder protocol. * Multiple sclerosis flair with non-traumatic spinal cord injury (T5 JOAO D) and functional paraplegia: methylprednisolone 1 g IV daily for total of five days (first dose on rehab will be 03/05, last day 03/06). Follow-up with outpatient neurologist for additional workup for NMO. Physical therapy and occupational therapy for impaired mobility and self-care. Continue medications for MS management. Spinal cord injury teaching. * Neuropathy: continue gabapentin, desensitization therapy * Tobacco use: continue nicotine and give cessation education * Neurogenic bladder: slightly elevated post void residual today, monitor closely. Place bran for residuals greater than 300, N bladder program. * Neurogenic bowel: patient reports no bowel movement in two weeks, we will be aggressive with suppository, possibly including mag citrate. Neurogenic bowel program * History of bipolar, anxiety, ADHD: continue home medications, monitor closely. No SI. May have increased lability on steroid burst. * Hypothyroid: continue levothyroxine * Code Status: Full Code * Contact: She states that she will be getting a divorce, but still designates her as the decision maker in the event she is not able * Proph: enoxaparin 40 mg subcutaneous, protonix 40 mg daily while on steroids * Skin: No breakdown, monitor * ELOS/ Dispo: 7 to 10 days, planning to discharge home with modified independence. Plan: 03/05/17 11:13 03/05/17 11:25 Subjective: CC: neurogenic bowel No acute events overnight. Patient had productive bowel program last night though had some nausea as well. She had vomiting, relieved with ondansetron. Also she was quite anxious, received a low dose of Ativan, felt a bit low this morning as a result. Requesting that the Ativan dose be lowered if needed again. Counseled her that additional bowel programs will likely be needed to catch up with the two weeks of constipation. Denies any new shortness of breath , chest pain, new numbness, tingling, or weakness. She is working to get a new prescription for her Vyvanse filled and requesting that the Copaxone be given in the evening. Objective: Vital Signs Temp Pulse Resp BP Pulse Ox 37.2 C 62 16 101/60 94 03/05/17 06:15 03/05/17 06:15 03/05/17 06:15 03/05/17 06:15 03/05/17 06:15 03/04/17 03/05/17 03/06/17 05:59 05:59 05:59 Intake Total 320 420 Output Total 900 Balance -580 420 Physical Exam - Physical Exam General Appearance: WD/WN, alert, no apparent distress Respiratory: No respiratory distress, No accessory muscle use Cardiac/Chest: regular rate, rhythm, No edema Skin: normal color, warm/dry, No cyanosis Neuro/Psych: alert, normal mood/affect ICD10 Worksheet Patient Problems: Problems Problem Status Onset Inability to walk Acute Lower extremity numbness Acute Multiple sclerosis exacerbation Acute Weakness of lower extremity Acute
[2017-03-05] MEDS ORDERED: MAGNESIUM CITRATE 300 ML BOTTLE PO ONE (12:00)
[2017-03-05] MEDS: ONDANSETRON DISINTEGRATING 4 MG TAB PO PRN (15:50)
[2017-03-05] MEDS: lamoTRIgine 100 MG TAB PO SCH (20:24)
[2017-03-05] MEDS: GABAPENTIN 300 MG CAP PO SCH (20:24)
[2017-03-05] MEDS: ARIPiprazole 5 MG TAB PO SCH (20:25)
[2017-03-05] MEDS ORDERED: BISACODYL 10 MG SUPP PR ONE (20:30)
[2017-03-05] MEDS: ZOLPIDEM TARTRATE 5 MG TAB PO SCH (22:48)
[2017-03-06] MEDS: GLATIRAMER ACETATE SQ SCH (02:17)
[2017-03-06] MEDS: LEVOTHYROXINE 125 MCG TAB PO SCH (05:31)
[2017-03-06] MEDS: ENOXAPARIN 40 MG/0.4 ML SYR SC SCH (07:54)
[2017-03-06] MEDS: GABAPENTIN 100 MG CAP PO SCH ×2 (07:54→12:34)
[2017-03-06] MEDS: Lisdexamfetamine Dimesylate [Vyvanse] 70 MG PO SCH (08:14)
[2017-03-06] MEDS: SENNOSIDES/DOCUSATE SODIUM TAB PO SCH ×2 (08:15→23:04)
[2017-03-06] MEDS: MODAFINIL 100 MG TAB PO SCH (08:15)
[2017-03-06] MEDS: PANTOPRAZOLE SODIUM 40 MG TAB PO SCH (08:15)
[2017-03-06] MEDS: methylPREDNISolone SOD SUCC 1 GM in D5W 100 ML IV SCH (09:40)
--- NOTE | 2017-03-06 10:58 | SOAPPROG ---
SOAP Progress Note Assessment/Plan: Assessment: This is a 41-year-old woman with a history of multiple sclerosis now with new impairments in mobility and self-care, decline from baseline, with a new spinal cord lesion from T2 to T4, with non-traumatic SCI and functional para. 03/06 excellent results from bowel program, doing well with initial therapies. Low mood in the setting of existing depression and bipolar likely due to the IV steroids and adjustment. No changes to medications for now, would contact her psychiatrist if any were planned. A total of 30 minutes was spent on the floor in the care of the patient, the majority of which was spent in the counseling and ordination care regarding smoking cessation, neurogenic bowel, and functional impairment. * Multiple sclerosis flair with non-traumatic spinal cord injury (T5 JOAO D) and functional paraplegia: methylprednisolone 1 g IV daily for total of five days (first dose on rehab will be 03/05, last day 03/06). Follow-up with outpatient neurologist for additional workup for NMO. Physical therapy and occupational therapy for impaired mobility and self-care. Continue medications for MS management. Spinal cord injury teaching. * Neuropathy: continue gabapentin, desensitization therapy * Tobacco use: continue nicotine and give cessation education. She stated that she was having an occasional cigarette, and she was counseled to be cautious of concurrent cigarette use and nicotine gum use. * Neurogenic bladder: monitor, voiding with slightly elevated PVR. * Neurogenic bowel: Continue daily bowel program, plan to get KUB on 03/07 to eval for ongoing constipation. * History of bipolar, anxiety, ADHD: continue home medications, monitor closely. No SI. somewhat worsened low mood on the steroids, as well as adjustment. She gave us the contact information for her psychiatrist listed below in case we need to contact them. * Hypothyroid: continue levothyroxine * Code Status: Full Code * Contact: She states that she will be getting a divorce, but still designates her as the decision maker in the event she is not able * Proph: enoxaparin 40 mg subcutaneous, protonix 40 mg daily while on steroids * Skin: No breakdown, monitor * ELOS/ Dispo: 7 to 10 days, planning to discharge home with modified independence. Counseled her that this may need to be extended. Follow-up with neurologist, as well as her psychiatrist Dr. Shane Ramon, [place], [phone] Plan: 03/05/17 11:13 03/05/17 11:25 03/06/17 10:54 03/06/17 10:58 Subjective: CC: low mood. No acute events overnight. Patient had a good bowel program. She endorsed having some low mood and was concerned about the reasons. She is currently on IV steroids which could contribute, as well as adjustment. Denies any suicidal ideation, history of suicidal ideation, feels safe currently. Additionally she notes that she would like any opportunity to go outside to read a book, plans to discuss with nursing. Additionally she notes that she has improving sensation in her feet below the shins, still has impaired sensation in her abdomen. Denies any new shortness of breath, chest pain, or new numbness, tingling, or weakness. Objective: Vital Signs Temp Pulse Resp BP Pulse Ox 37 C 55 L 16 103/55 L 93 03/06/17 07:40 03/06/17 07:40 03/06/17 07:40 03/06/17 07:40 03/06/17 07:40 03/05/17 03/06/17 03/07/17 05:59 05:59 05:59 Intake Total 320 1020 420 Output Total 900 2450 Balance -580 -1430 420 Physical Exam - Physical Exam General Appearance: WD/WN, alert, no apparent distress EENT: No scleral icterus (R), No scleral icterus (L) Respiratory: No respiratory distress, No accessory muscle use Cardiac/Chest: regular rate, rhythm, No edema Skin: normal color, warm/dry, No cyanosis Extremities: No pedal edema, No swelling Neuro/Psych: alert, motor weakness, sensory deficit, No normal mood/affect (low mood, occasionally tearful. 0-10 where 0 is lowest mood of her life and 10 is a great mood, she rated her mood a 3-4.) ICD10 Worksheet Patient Problems: Problems Problem Status Onset Inability to walk Acute Lower extremity numbness Acute Multiple sclerosis exacerbation Acute Weakness of lower extremity Acute
[2017-03-06] MEDS: NICOTINE POLACRILEX 2 MG GUM B PRN (14:08)
[2017-03-06] MEDS: BISACODYL 10 MG SUPP PR SCH (21:52)
[2017-03-06] MEDS: ONDANSETRON DISINTEGRATING 4 MG TAB PO PRN (21:52)
[2017-03-06] MEDS: lamoTRIgine 100 MG TAB PO SCH (23:03)
[2017-03-06] MEDS: ZOLPIDEM TARTRATE 5 MG TAB PO SCH (23:04)
[2017-03-06] MEDS: ARIPiprazole 5 MG TAB PO SCH (23:04)
[2017-03-06] MEDS: GABAPENTIN 300 MG CAP PO SCH (23:04)
[2017-03-07] MEDS: LEVOTHYROXINE 125 MCG TAB PO SCH (06:04)
[2017-03-07] MEDS: BISACODYL 10 MG SUPP PR SCH ×2 (08:57→20:31)
[2017-03-07] MEDS: GABAPENTIN 100 MG CAP PO SCH ×2 (08:58→12:59)
[2017-03-07] MEDS: ENOXAPARIN 40 MG/0.4 ML SYR SC SCH (08:58)
[2017-03-07] MEDS: MODAFINIL 100 MG TAB PO SCH (08:58)
[2017-03-07] MEDS: PANTOPRAZOLE SODIUM 40 MG TAB PO SCH (08:58)
[2017-03-07] MEDS: POLYETHYLENE GLYCOL 3350 17 GM PKT PO PRN (08:59)
[2017-03-07] MEDS: SENNOSIDES/DOCUSATE SODIUM TAB PO SCH ×2 (08:59→21:20)
[2017-03-07] MEDS: Lisdexamfetamine Dimesylate [Vyvanse] 70 MG PO SCH (09:04)
[2017-03-07] MEDS ORDERED: BISACODYL 10 MG SUPP PR SCH (09:07)
--- NOTE | 2017-03-07 09:52 | SOAPPROG ---
SOAP Progress Note Assessment/Plan: Assessment: This is a 41-year-old woman with a history of multiple sclerosis now with new impairments in mobility and self-care, decline from baseline, with a new spinal cord lesion from T2 to T4, with non-traumatic SCI and functional para. 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 Initial FIM 84. Walking 40 - 100' SBA FWW. Did 6 stairs [place]. Follow-up with outpatient neurologist for additional workup for NMO. Physical therapy and occupational therapy for impaired mobility and self-care. Continue medications for MS management. Spinal cord injury teaching. * Neuropathy: continue gabapentin, desensitization therapy * Tobacco use: continue nicotine and give cessation education. She stated that she was having an occasional cigarette, and she was counseled to be cautious of concurrent cigarette use and nicotine gum use. * Neurogenic bladder: monitor, voiding with slightly elevated PVR. * Neurogenic bowel: Continue daily bowel program. Constipation has resolved. * Lethargy. Due to withdrawal of corticosteroids? Recent normal TSH 12/03; no other S/Sx infectious of metabolic disease. Continue to monitor. * History of bipolar, anxiety, ADHD: continue home medications, monitor closely. No SI. She gave us the contact information for her psychiatrist listed below in case we need to contact them. * Hypothyroid: continue levothyroxine * Code Status: Full Code * Contact: She states that she will be getting a divorce, but still designates her as the decision maker in the event she is not able * Proph: enoxaparin 40 mg subcutaneous, protonix 40 mg daily while on steroids * Skin: No breakdown, monitor * ELOS/ Dispo: 7 to 10 days, planning to discharge home with modified independence. Counseled her that this may need to be extended. Attended staffing, 15 min. D/W case mgmt, nursing, PT, OT. Complicated situation with recent loss of job and pending divorce. Expect 7 - 10 days length of stay, with tentative discharge 03/16/17. Follow-up with neurologist, as well as her psychiatrist Dr. Shane Ramon, [place], [phone] 03/07/17 13:16 Subjective: C/O feeling "fog" and lethargy. Denies cough, dyspnea, f/c, dysuria. Has urinary incontinence when she can't get on the commode soon enough. Moving bowels with daily evening suppository. Sleeping well. Objective: Vital Signs Temp Pulse Resp BP Pulse Ox 36.9 C 64 14 104/63 97 03/07/17 08:00 03/07/17 08:00 03/07/17 08:00 03/07/17 08:00 03/07/17 08:00 03/06/17 03/07/17 03/08/17 05:59 05:59 05:59 Intake Total 1020 1140 250 Output Total 2450 Balance -1430 1140 250 - Time Spent With Patient Time Spent With Patient: Greater than 35 minutes floor time today, including more than 50% of time in coordination of care during staffing, and counseling patient. Physical Exam - Physical Exam General Appearance: WD/WN, alert, no apparent distress Respiratory: normal breath sounds, No respiratory distress Cardiac/Chest: regular rate, rhythm, No edema Skin: normal color, warm/dry Neuro/Psych: alert, normal mood/affect, oriented x 3, abnormal gait (with 4WW) ICD10 Worksheet Patient Problems: Problems Problem Status Onset Inability to walk Acute Lower extremity numbness Acute Multiple sclerosis exacerbation Acute Weakness of lower extremity Acute
[2017-03-07] MEDS: NICOTINE POLACRILEX 2 MG GUM B PRN (11:38)
[2017-03-07] MEDS: GABAPENTIN 300 MG CAP PO SCH (21:15)
[2017-03-07] MEDS: ARIPiprazole 5 MG TAB PO SCH (21:15)
[2017-03-07] MEDS: lamoTRIgine 100 MG TAB PO SCH (21:16)
[2017-03-07] MEDS: ZOLPIDEM TARTRATE 5 MG TAB PO SCH (21:16)
[2017-03-07] MEDS: GLATIRAMER ACETATE SQ SCH (21:19)
[2017-03-08] MEDS: LEVOTHYROXINE 125 MCG TAB PO SCH (06:02)
[2017-03-08] MEDS: ENOXAPARIN 40 MG/0.4 ML SYR SC SCH (08:33)
[2017-03-08] MEDS: Lisdexamfetamine Dimesylate [Vyvanse] 70 MG PO SCH (08:36)
[2017-03-08] MEDS: GABAPENTIN 100 MG CAP PO SCH ×2 (08:36→12:20)
[2017-03-08] MEDS: SENNOSIDES/DOCUSATE SODIUM TAB PO SCH ×2 (08:37→21:24)
[2017-03-08] MEDS: PANTOPRAZOLE SODIUM 40 MG TAB PO SCH (08:37)
[2017-03-08] MEDS: POLYETHYLENE GLYCOL 3350 17 GM PKT PO PRN (08:37)
[2017-03-08] MEDS: MODAFINIL 100 MG TAB PO SCH (08:37)
--- NOTE | 2017-03-08 14:13 | SOAPPROG ---
SOAP Progress Note Assessment/Plan: Assessment: This is a 41-year-old woman with a history of multiple sclerosis now with new impairments in mobility and self-care, decline from baseline, with a new spinal cord lesion from T2 to T4, with non-traumatic SCI and functional para. 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 Initial FIM 84. Walking 40 - 100' SBA FWW. Did 6 stairs [place]. Follow-up with outpatient neurologist for additional workup for NMO. Physical therapy and occupational therapy for impaired mobility and self-care. Continue medications for MS management. Spinal cord injury teaching. * Neuropathy: continue gabapentin, desensitization therapy * Neck pain. Advised her to use acetaminophen. PT/OT modalities. * Insomnia, Used zolpidem last night but reports poor sleep. Continue to monitor. * Tobacco use: continue nicotine and give cessation education. She stated that she was having an occasional cigarette, and she was counseled to be cautious of concurrent cigarette use and nicotine gum use. * Voiding well; doubt neurogenic bladder. * Neurogenic bowel? Continue daily bowel program. Constipation has resolved. * Lethargy, improving. Due to withdrawal of corticosteroids? Recent normal TSH 12/03; no other S/Sx infectious of metabolic disease. Continue to monitor. * History of bipolar, anxiety, ADHD: continue home medications, monitor closely. No SI. She gave us the contact information for her psychiatrist listed below in case we need to contact them. * Hypothyroid: continue levothyroxine * Code Status: Full Code * Contact: She states that she will be getting a divorce, but still designates her as the decision maker in the event she is not able * Proph: enoxaparin 40 mg subcutaneous, protonix 40 mg daily while on steroids * Skin: No breakdown, monitor Attended staffing, 15 min. D/W case mgmt, nursing, PT, OT. Complicated situation with recent loss of job and pending divorce. Expect 7 - 10 days length of stay, with tentative discharge 03/16/17. Follow-up with neurologist, as well as her psychiatrist Dr. Shane Ramon, [place], [phone] 03/08/17 14:14 Subjective: C/O neck pain. Worries that it means she's getting another episode. No new weakness. Had an emotional episode this morning with tearfulness, better now. Had foggy sensation this morning. Did not sleep well last night. Objective: Vital Signs Temp Pulse Resp BP Pulse Ox 37.0 C 62 16 104/64 92 03/08/17 07:16 03/08/17 07:16 03/08/17 07:16 03/08/17 07:16 03/08/17 07:16 03/07/17 03/08/17 03/09/17 05:59 05:59 05:59 Intake Total 1140 1170 360 Output Total 500 Balance 1140 670 360 Physical Exam - Physical Exam General Appearance: WD/WN, alert, no apparent distress Respiratory: normal breath sounds, No crackles, No rhonchi, No wheezing Cardiac/Chest: regular rate, rhythm, edema (1+ B LE) Skin: normal color, warm/dry Neuro/Psych: alert, normal mood/affect, oriented x 3 ICD10 Worksheet Patient Problems: Problems Problem Status Onset Inability to walk Acute Lower extremity numbness Acute Multiple sclerosis exacerbation Acute Weakness of lower extremity Acute
[2017-03-08] MEDS: ACETAMINOPHEN 325 MG TAB PO PRN (16:03)
[2017-03-08] MEDS: BISACODYL 10 MG SUPP PR SCH (19:53)
[2017-03-08] MEDS: ARIPiprazole 5 MG TAB PO SCH (21:07)
[2017-03-08] MEDS: GABAPENTIN 300 MG CAP PO SCH (21:08)
[2017-03-08] MEDS: ZOLPIDEM TARTRATE 5 MG TAB PO SCH (21:08)
[2017-03-08] MEDS: lamoTRIgine 100 MG TAB PO SCH (21:08)
[2017-03-09] MEDS: LEVOTHYROXINE 125 MCG TAB PO SCH (06:09)
[2017-03-09] MEDS: Lisdexamfetamine Dimesylate [Vyvanse] 70 MG PO SCH (08:46)
[2017-03-09] MEDS: MODAFINIL 100 MG TAB PO SCH (08:46)
[2017-03-09] MEDS: PANTOPRAZOLE SODIUM 40 MG TAB PO SCH (08:46)
[2017-03-09] MEDS: SENNOSIDES/DOCUSATE SODIUM TAB PO SCH ×2 (08:46→21:29)
[2017-03-09] MEDS: GABAPENTIN 100 MG CAP PO SCH ×2 (08:46→12:11)
[2017-03-09] MEDS: POLYETHYLENE GLYCOL 3350 17 GM PKT PO PRN (08:46)
[2017-03-09] MEDS: ENOXAPARIN 40 MG/0.4 ML SYR SC SCH (08:47)
--- NOTE | 2017-03-09 09:50 | SOAPPROG ---
SOAP Progress Note Assessment/Plan: Assessment: This is a 41-year-old woman with a history of multiple sclerosis now with new impairments in mobility and self-care, decline from baseline, with a new spinal cord lesion from T2 to T4, with non-traumatic SCI and functional para. 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 Initial FIM 84. Walking 40 - 100' SBA FWW. Did 6 stairs [place]. Follow-up with outpatient neurologist for additional workup for NMO. Physical therapy and occupational therapy for impaired mobility and self-care. Continue medications for MS management. Spinal cord injury teaching. * Cognitive impairment with mild to moderate deficits to attention, exec fn and memory. C/W MS lesions on brain MRI 02/15/17. Continue STOGY ROLLER. * Neuropathy: continue gabapentin, desensitization therapy * Neck pain. Adequate control with acetaminophen. PT/OT modalities. * Neurogenic bowel? Continue daily bowel program. Constipation has resolved. * Lethargy, improving. Due to withdrawal of corticosteroids? Recent normal TSH 12/03; no other S/Sx infectious of metabolic disease. Continue to monitor. Chronic/stable conditions: * Insomnia, Resolved. Has used zolpidem QHS since 2007, prescribed by psychiatrist who treats bipolar disorder. * Tobacco use: continue nicotine and give cessation education. She stated that she was having an occasional cigarette, and she was counseled to be cautious of concurrent cigarette use and nicotine gum use. * Voiding well; doubt neurogenic bladder. * History of bipolar, anxiety, ADHD: continue home medications, monitor closely. No SI. She gave us the contact information for her psychiatrist listed below in case we need to contact them. * Proph: enoxaparin 40 mg subcutaneous. D/C protonix 40 mg daily on 03/10/17 as she's no longer on steroids * Skin: No breakdown, monitor * Hypothyroid: continue levothyroxine * Code Status: Full Code * Contact: She states that she will be getting a divorce, but still designates her as the decision maker in the event she is not able Complicated situation with recent loss of job and pending divorce. Expect 7 - 10 days length of stay, with tentative discharge 03/16/17. Follow-up with neurologist, as well as her psychiatrist Dr. Shane Ramon, [place], [phone] 03/09/17 10:27 Subjective: Reports her legs feel stiff in the morning, and gets "buckling" as she stands at the sink. Does better later in the day. Notes that she's walking much better and not dragging L leg. Concerned re cognitive issues and ability to focus on a task. Objective: Vital Signs Temp Pulse Resp BP Pulse Ox 36.7 C 63 16 98/52 L 92 03/09/17 06:21 03/09/17 06:21 03/09/17 06:21 03/09/17 06:21 03/09/17 06:21 03/08/17 03/09/17 03/10/17 05:59 05:59 05:59 Intake Total 1170 1860 200 Output Total 500 950 Balance 670 910 200 Physical Exam - Physical Exam General Appearance: WD/WN, alert, no apparent distress Respiratory: No respiratory distress, No accessory muscle use Skin: normal color, warm/dry Neuro/Psych: alert, normal mood/affect, oriented x 3, abnormal gait (Ambulating with 4WW, slowly, narrow-based, step-through pattern, no foot-drag.) ICD10 Worksheet Patient Problems: Problems Problem Status Onset Inability to walk Acute Lower extremity numbness Acute Multiple sclerosis exacerbation Acute Weakness of lower extremity Acute
[2017-03-09] MEDS ORDERED: NICOTINE POLACRILEX 4 MG GUM B PRN (11:26)
[2017-03-09] MEDS: BISACODYL 10 MG SUPP PR SCH (20:03)
[2017-03-09] MEDS ORDERED: LAMOTRIGINE PO SCH (21:00)
[2017-03-09] MEDS: ZOLPIDEM TARTRATE 5 MG TAB PO SCH (21:28)
[2017-03-09] MEDS: ARIPiprazole 5 MG TAB PO SCH (21:28)
[2017-03-09] MEDS: GABAPENTIN 300 MG CAP PO SCH (21:29)
[2017-03-09] MEDS: lamoTRIgine 100 MG TAB PO SCH (21:39)
[2017-03-09] MEDS: GLATIRAMER ACETATE SQ SCH (21:39)
[2017-03-10] MEDS: LEVOTHYROXINE 125 MCG TAB PO SCH (06:18)
[2017-03-10] MEDS: Lisdexamfetamine Dimesylate [Vyvanse] 70 MG PO SCH (07:26)
[2017-03-10] MEDS: ENOXAPARIN 40 MG/0.4 ML SYR SC SCH (07:27)
[2017-03-10] MEDS: SENNOSIDES/DOCUSATE SODIUM TAB PO SCH (07:27)
[2017-03-10] MEDS: MODAFINIL 100 MG TAB PO SCH (07:27)
[2017-03-10] MEDS: POLYETHYLENE GLYCOL 3350 17 GM PKT PO PRN (07:27)
[2017-03-10] MEDS: GABAPENTIN 100 MG CAP PO SCH ×2 (07:27→11:29)
--- NOTE | 2017-03-10 08:50 | SOAPPROG ---
SOAP Progress Note Assessment/Plan: Assessment: This is a 41-year-old woman with a history of multiple sclerosis now with new impairments in mobility and self-care, decline from baseline, with a new spinal cord lesion from T2 to T4, with non-traumatic SCI and functional para. 03/10/2017 mood much improved after cessation of steroids. Dressing and grooming with standby assistance, used a walker outside yesterday. We will change schedule of bowel program to the morning, and allow for experimentation with digital stimulation. Plan to observe walking with therapy a bit later to decide on AFO versus low friction toe cap versus no intervention for foot drop. Counseled her on importance of keeping cool to avoid MS flares, and also on temperature management strategies. A total of 30 minutes was spent on the floor in the care of the patient, the majority of which is spent in the counseling and coordination of care regarding issues above. 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 Initial FIM 84. Walking 40 - 100' SBA FWW. Did 6 stairs [place]. Follow-up with outpatient neurologist for additional workup for NMO. Physical therapy and occupational therapy for impaired mobility and self-care. Continue medications for MS management. Spinal cord injury teaching. Eval for possible orthotic * Cognitive impairment with mild to moderate deficits to attention, exec fn and memory. C/W MS lesions on brain MRI 02/15/17. Continue 3D TECHNOLOGIST. * Neuropathy: continue gabapentin, desensitization therapy * Neck pain. Adequate control with acetaminophen. PT/OT modalities. * Neurogenic bowel? Continue daily bowel program, switching to morning. * Lethargy, improving. Due to withdrawal of corticosteroids? Recent normal TSH 12/03; no other S/Sx infectious of metabolic disease. Continue to monitor. Chronic/stable conditions: * Insomnia, Resolved. Has used zolpidem QHS since 2007, prescribed by psychiatrist who treats bipolar disorder. * Tobacco use: continue nicotine and give cessation education. She stated that she was having an occasional cigarette, and she was counseled to be cautious of concurrent cigarette use and nicotine gum use. * Voiding well; doubt neurogenic bladder. * History of bipolar, anxiety, ADHD: continue home medications, monitor closely. No SI. She gave us the contact information for her psychiatrist listed below in case we need to contact them. * Proph: enoxaparin 40 mg subcutaneous. D/C protonix 40 mg daily on 03/10/17 as she's no longer on steroids * Skin: No breakdown, monitor * Hypothyroid: continue levothyroxine * Code Status: Full Code * Contact: She states that she will be getting a divorce, but still designates her as the decision maker in the event she is not able Complicated situation with recent loss of job and pending divorce. Expect 7 - 10 days length of stay, with tentative discharge 03/16/17. Follow-up with neurologist, as well as her psychiatrist Dr. Shane Ramon, [place], [phone] 03/10/17 08:52 Subjective: CC: pain with bowel program no acute events overnight. Patient endorses that she has an uncomfortable pressure sensation with the use of the suppositories. She had a break from bowel program last night at her request. Additionally, she endorses occasional catching of her left toe vertically when she is fatigued. Denies other instability the leg but does note some occasional genu recurvatum, bilaterally. she reports having dressed and groomed a standby assistance in using a walker outside yesterday. She denies any sensitivity to the heat yesterday, has not been through a summer yet with her new diagnosis of multiple sclerosis. No new numbness, tingling, or weakness. Objective: Vital Signs Temp Pulse Resp BP Pulse Ox 36.6 C 81 16 100/59 L 95 03/10/17 06:21 03/10/17 06:21 03/10/17 06:21 03/10/17 06:21 03/10/17 06:21 03/09/17 03/10/17 03/11/17 05:59 05:59 05:59 Intake Total 1860 1280 Output Total 950 Balance 910 1280 Physical Exam - Physical Exam General Appearance: WD/WN, alert, no apparent distress EENT: No scleral icterus (R), No scleral icterus (L) Respiratory: No respiratory distress, No accessory muscle use Cardiac/Chest: No edema Skin: normal color, warm/dry, No cyanosis Extremities: No pedal edema, No swelling Neuro/Psych: alert, normal mood/affect, motor weakness ( 4/5 ankle dorsiflexion bilaterally, 4/5 knee extension bilaterally slightly weaker on the left than the right) ICD10 Worksheet Patient Problems: Problems Problem Status Onset Inability to walk Acute Lower extremity numbness Acute Multiple sclerosis exacerbation Acute Weakness of lower extremity Acute
[2017-03-10] MEDS ORDERED: BISACODYL 10 MG SUPP PR SCH (09:00)
[2017-03-10] MEDS ORDERED: GLYCERIN ADULT 1 EACH SUPP PR PRN (10:15)
[2017-03-10] MEDS: ACETAMINOPHEN 325 MG TAB PO PRN (19:15)
[2017-03-10] MEDS: ZOLPIDEM TARTRATE 5 MG TAB PO SCH (20:59)
[2017-03-10] MEDS: GABAPENTIN 300 MG CAP PO SCH (20:59)
[2017-03-10] MEDS: ARIPiprazole 5 MG TAB PO SCH (21:00)
[2017-03-10] MEDS: lamoTRIgine 100 MG TAB PO SCH (21:02)
[2017-03-11] MEDS: LEVOTHYROXINE 125 MCG TAB PO SCH (06:06)
[2017-03-11] MEDS: SENNOSIDES/DOCUSATE SODIUM TAB PO SCH (07:27)
[2017-03-11] MEDS: GABAPENTIN 100 MG CAP PO SCH ×2 (07:27→12:07)
[2017-03-11] MEDS: MODAFINIL 100 MG TAB PO SCH (07:28)
[2017-03-11] MEDS: LISDEXAMFETAMINE DIMESYLATE PO SCH (07:28)
[2017-03-11] MEDS ORDERED: LEVOTHYROXINE 125 MCG TAB PO SCH (07:30)
[2017-03-11] MEDS: ENOXAPARIN 40 MG/0.4 ML SYR SC SCH (07:32)
[2017-03-11] MEDS: POLYETHYLENE GLYCOL 3350 17 GM PKT PO PRN (07:32)
[2017-03-11] MEDS: BISACODYL 10 MG SUPP PR SCH (08:55)
--- NOTE | 2017-03-11 12:20 | SOAPPROG ---
SOAP Progress Note Assessment/Plan: Assessment: This is a 41-year-old woman with a history of multiple sclerosis now with new impairments in mobility and self-care, decline from baseline, with a new spinal cord lesion from T2 to T4, with non-traumatic SCI and functional para. 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 Initial FIM 84. Walking 40 - 100' SBA FWW. Did 6 stairs min A. Discussed endurance training. NMO antibodies negative. Physical therapy and occupational therapy for impaired mobility and self-care. Continue medications for MS management. Spinal cord injury teaching. * Cognitive impairment with mild to moderate deficits to attention, exec fn and memory. C/W MS lesions on brain MRI 02/15/17. Continue AIRWAYS CONTROL SPECIALIST. * Neuropathy: continue gabapentin, desensitization therapy * Neck pain. Adequate control with acetaminophen. PT/OT modalities. * Neurogenic bowel? Continue daily bowel program. Obstruction unlikely on Abd CT. Proceed with MgCitrate and enema today 03/11/17. Chronic/stable conditions: * Lethargy, improving. Resolved. Due to withdrawal of corticosteroids? Recent normal TSH 12/03; no other S/Sx infectious of metabolic disease. Continue to monitor. * Insomnia, Resolved. Has used zolpidem QHS since 2007, prescribed by psychiatrist who treats bipolar disorder. * Tobacco use: continue nicotine and give cessation education. She stated that she was having an occasional cigarette, and she was counseled to be cautious of concurrent cigarette use and nicotine gum use. * Voiding well; doubt neurogenic bladder. * History of bipolar, anxiety, ADHD: continue home medications, monitor closely. No SI. She gave us the contact information for her psychiatrist listed below in case we need to contact them. * Proph: enoxaparin 40 mg subcutaneous. D/C protonix 40 mg daily on 03/10/17 as she's no longer on steroids * Skin: No breakdown, monitor * Hypothyroid: continue levothyroxine * Code Status: Full Code * Contact: She states that she will be getting a divorce, but still designates her as the decision maker in the event she is not able Complicated situation with recent loss of job and pending divorce. Expect 7 - 10 days length of stay, with tentative discharge 03/16/17. Follow-up with neurologist, as well as her psychiatrist Dr. Shane Ramon, [place], 03/11/17 12:17 Subjective: Still with constipation. Denies pain. No n/v, f/c. Appetite OK. Objective: Vital Signs Temp Pulse Resp BP Pulse Ox 36.9 C 84 16 104/61 91 L 03/11/17 05:59 03/11/17 05:59 03/11/17 05:59 03/11/17 05:59 03/11/17 05:59 03/10/17 03/11/17 03/12/17 05:59 05:59 05:59 Intake Total 1280 580 240 Balance 1280 580 240 Physical Exam - Physical Exam General Appearance: WD/WN, alert, no apparent distress Respiratory: No respiratory distress, No accessory muscle use Abdomen: normal bowel sounds, non-tender, soft, distended Skin: normal color, warm/dry Neuro/Psych: alert, normal mood/affect, oriented x 3, abnormal gait (Slow, with 4WW.) ICD10 Worksheet Patient Problems: Problems Problem Status Onset Inability to walk Acute Lower extremity numbness Acute Multiple sclerosis exacerbation Acute Weakness of lower extremity Acute
[2017-03-11] MEDS: GABAPENTIN 300 MG CAP PO SCH (22:23)
[2017-03-11] MEDS: lamoTRIgine 100 MG TAB PO SCH (22:24)
[2017-03-11] MEDS: ZOLPIDEM TARTRATE 5 MG TAB PO SCH (22:24)
[2017-03-11] MEDS: ARIPiprazole 5 MG TAB PO SCH (22:24)
[2017-03-11] MEDS: GLATIRAMER ACETATE SQ SCH (22:26)
[2017-03-12] MEDS: LEVOTHYROXINE 125 MCG TAB PO SCH (06:46)
[2017-03-12] MEDS: BISACODYL 10 MG SUPP PR SCH (07:03)
[2017-03-12] MEDS: MODAFINIL 100 MG TAB PO SCH (07:30)
[2017-03-12] MEDS: SENNOSIDES/DOCUSATE SODIUM TAB PO SCH (07:30)
[2017-03-12] MEDS: ENOXAPARIN 40 MG/0.4 ML SYR SC SCH (07:30)
[2017-03-12] MEDS: GABAPENTIN 100 MG CAP PO SCH ×2 (07:30→12:22)
[2017-03-12] MEDS: LISDEXAMFETAMINE DIMESYLATE PO SCH (07:48)
--- NOTE | 2017-03-12 07:49 | SOAPPROG ---
SOAP Progress Note Assessment/Plan: This is a 41-year-old woman with a history of multiple sclerosis now with new impairments in mobility and self-care, decline from baseline, with a new spinal cord lesion from T2 to T4, with non-traumatic SCI and functional para. 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 Initial FIM 84. Walking 40 - 100' SBA FWW. Did 6 stairs min A. Discussed endurance training. NMO antibodies negative. Physical therapy and occupational therapy for impaired mobility and self-care. Continue medications for MS management. Spinal cord injury teaching. * Cognitive impairment with mild to moderate deficits to attention, exec fn and memory. C/W MS lesions on brain MRI 02/15/17. Continue MAILROOM ASSOCIATE. * Neuropathy: continue gabapentin, desensitization therapy * Neck pain. Adequate control with acetaminophen. PT/OT modalities. * Neurogenic bowel? Continue daily bowel program. Obstruction unlikely on Abd CT. Proceed with MgCitrate and enema today 03/11/17. Chronic/stable conditions: * Lethargy, improving. Resolved. Due to withdrawal of corticosteroids? Recent normal TSH 12/03; no other S/Sx infectious of metabolic disease. Continue to monitor. * Insomnia, Resolved. Has used zolpidem QHS since 2007, prescribed by psychiatrist who treats bipolar disorder. * Tobacco use: continue nicotine and give cessation education. She stated that she was having an occasional cigarette, and she was counseled to be cautious of concurrent cigarette use and nicotine gum use. * Voiding well; doubt neurogenic bladder. * History of bipolar, anxiety, ADHD: continue home medications, monitor closely. No SI. She gave us the contact information for her psychiatrist listed below in case we need to contact them. * Proph: enoxaparin 40 mg subcutaneous. D/C protonix 40 mg daily on 03/10/17 as she's no longer on steroids * Skin: No breakdown, monitor * Hypothyroid: continue levothyroxine * Code Status: Full Code * Contact: She states that she will be getting a divorce, but still designates her as the decision maker in the event she is not able Complicated situation with recent loss of job and pending divorce. Expect 7 - 10 days length of stay, with tentative discharge 03/16/17. Follow-up with neurologist, as well as her psychiatrist Dr. Shane Ramon, [place], Subjective: No events. No complaints this a.m. Still requiring enemas for BM, improved LE sensation. Objective: Vital Signs Temp Pulse Resp BP Pulse Ox 36.8 C 106 H 18 109/70 97 03/11/17 18:27 03/11/17 18:27 03/11/17 18:27 03/11/17 20:00 03/11/17 18:27 03/11/17 03/12/17 03/13/17 05:59 05:59 05:59 Intake Total 580 980 Balance 580 980 - Pending Discharge Pending Discharge Within 24 Hours: No Pending Discharge Within 48 Hours: No Physical Exam - Physical Exam General Appearance: alert, no apparent distress EENT: No scleral icterus (R), No scleral icterus (L) Neck: supple Respiratory: lungs clear, normal breath sounds Cardiac/Chest: regular rate, rhythm Abdomen: normal bowel sounds, non-tender, soft Skin: normal color, warm/dry Extremities: pedal edema (trace) Neuro/Psych: alert, normal mood/affect, oriented x 3, motor weakness, sensory deficit, No abnormal stonecutter apprentice hand II-XII, No cognition abnormalities, No speech abnormalities ICD10 Worksheet Patient Problems: Problems Problem Status Onset Inability to walk Acute Lower extremity numbness Acute Multiple sclerosis exacerbation Acute Weakness of lower extremity Acute
[2017-03-12] MEDS: lamoTRIgine 100 MG TAB PO SCH (21:22)
[2017-03-12] MEDS: ARIPiprazole 5 MG TAB PO SCH (21:22)
[2017-03-12] MEDS: ZOLPIDEM TARTRATE 5 MG TAB PO SCH (21:23)
[2017-03-12] MEDS: GABAPENTIN 300 MG CAP PO SCH (21:24)
[2017-03-13] MEDS: LEVOTHYROXINE 125 MCG TAB PO SCH (06:32)
[2017-03-13] MEDS: BISACODYL 10 MG SUPP PR SCH (08:56)
[2017-03-13] MEDS: GABAPENTIN 100 MG CAP PO SCH ×2 (08:58→11:15)
[2017-03-13] MEDS: MODAFINIL 100 MG TAB PO SCH (08:58)
[2017-03-13] MEDS: SENNOSIDES/DOCUSATE SODIUM TAB PO SCH ×2 (08:58→09:12)
[2017-03-13] MEDS: ENOXAPARIN 40 MG/0.4 ML SYR SC SCH (08:58)
[2017-03-13] MEDS: LISDEXAMFETAMINE DIMESYLATE PO SCH (09:07)
--- NOTE | 2017-03-13 13:01 | SOAPPROG ---
SOAP Progress Note Assessment/Plan: This is a 41-year-old woman with a history of multiple sclerosis now with new impairments in mobility and self-care, decline from baseline, with a new spinal cord lesion from T2 to T4, with non-traumatic SCI and functional para. 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 Initial FIM 84. Walking 40 - 100' SBA FWW. Did 6 stairs min A. Discussed endurance training. NMO antibodies negative. Physical therapy and occupational therapy for impaired mobility and self-care. Continue medications for MS management. Spinal cord injury teaching. * Cognitive impairment with mild to moderate deficits to attention, exec fn and memory. C/W MS lesions on brain MRI 02/15/17. Continue SALESPERSON STEREO EQUIPMENT. * Neuropathy: continue gabapentin, desensitization therapy * Neck pain. Adequate control with acetaminophen. PT/OT modalities. * Neurogenic bowel? Continue daily bowel program. Obstruction unlikely on Abd CT. Proceed with MgCitrate and enema today 03/11/17. Chronic/stable conditions: * Lethargy, improving. Resolved. Due to withdrawal of corticosteroids? Recent normal TSH 12/03; no other S/Sx infectious of metabolic disease. Continue to monitor. * Insomnia, Resolved. Has used zolpidem QHS since 2007, prescribed by psychiatrist who treats bipolar disorder. * Tobacco use: continue nicotine and give cessation education. She stated that she was having an occasional cigarette, and she was counseled to be cautious of concurrent cigarette use and nicotine gum use. * Voiding well; doubt neurogenic bladder. * History of bipolar, anxiety, ADHD: continue home medications, monitor closely. No SI. She gave us the contact information for her psychiatrist listed below in case we need to contact them. * Proph: enoxaparin 40 mg subcutaneous. D/C protonix 40 mg daily on 03/10/17 as she's no longer on steroids * Skin: No breakdown, monitor * Hypothyroid: continue levothyroxine * Code Status: Full Code * Contact: She states that she will be getting a divorce, but still designates her as the decision maker in the event she is not able Complicated situation with recent loss of job and pending divorce. Expect 7 - 10 days length of stay, with tentative discharge 03/16/17. Follow-up with neurologist, as well as her psychiatrist Dr. Shane Ramon, [place], [phone] Subjective: No events. Doing well and without complaint today. Objective: Vital Signs Temp Pulse Resp BP Pulse Ox 36.8 C 78 16 93/61 L 97 03/13/17 06:37 03/13/17 06:37 03/13/17 06:37 03/13/17 06:37 03/13/17 06:37 03/12/17 03/13/17 03/14/17 05:59 05:59 05:59 Intake Total 980 455 118 Balance 980 455 118 - Pending Discharge Pending Discharge Within 24 Hours: No Pending Discharge Within 48 Hours: No Physical Exam - Physical Exam General Appearance: alert, no apparent distress Neck: supple Respiratory: No respiratory distress, No accessory muscle use Cardiac/Chest: No edema Abdomen: soft Skin: normal color, warm/dry Neuro/Psych: alert, normal mood/affect, oriented x 3, motor weakness, No cognition abnormalities, No speech abnormalities ICD10 Worksheet Patient Problems: Problems Problem Status Onset Inability to walk Acute Lower extremity numbness Acute Multiple sclerosis exacerbation Acute Weakness of lower extremity Acute
[2017-03-13] MEDS: lamoTRIgine 100 MG TAB PO SCH (21:42)
[2017-03-13] MEDS: GABAPENTIN 300 MG CAP PO SCH (21:43)
[2017-03-13] MEDS: ARIPiprazole 5 MG TAB PO SCH (21:44)
[2017-03-13] MEDS: ZOLPIDEM TARTRATE 5 MG TAB PO SCH (21:44)
[2017-03-13] MEDS: GLATIRAMER ACETATE SQ SCH (21:56)
[2017-03-14] MEDS: LEVOTHYROXINE 125 MCG TAB PO SCH (06:43)
[2017-03-14] MEDS: BISACODYL 10 MG SUPP PR SCH (06:46)
[2017-03-14] MEDS: ENOXAPARIN 40 MG/0.4 ML SYR SC SCH (07:52)
[2017-03-14] MEDS: GABAPENTIN 100 MG CAP PO SCH ×2 (07:52→12:58)
[2017-03-14] MEDS: SENNOSIDES/DOCUSATE SODIUM TAB PO SCH (07:54)
[2017-03-14] MEDS: BENEFIBER/NUTRISOURCE FIBER PKT 1 EACH PO PRN (07:54)
[2017-03-14] MEDS: MODAFINIL 100 MG TAB PO SCH (07:54)
[2017-03-14] MEDS: POLYETHYLENE GLYCOL 3350 17 GM PKT PO PRN (07:54)
[2017-03-14] MEDS: LISDEXAMFETAMINE DIMESYLATE PO SCH (08:01)
--- NOTE | 2017-03-14 13:45 | SOAPPROG ---
SOAP Progress Note Assessment/Plan: Assessment: This is a 41-year-old woman with a history of multiple sclerosis now with new impairments in mobility and self-care, decline from baseline, with a new spinal cord lesion from T2 to T4, with non-traumatic SCI and functional para. 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 Initial FIM 84; improved to 109 as of 03/14/17. Walking 300 - 400' FWW including outside. Did 12 stairs, 1 rail, I. I in room, I with ADLs. NMO antibodies negative. Physical therapy and occupational therapy for impaired mobility and self-care. Continue medications for MS management. * Cognitive impairment with mild to moderate deficits to attention, exec fn and memory. C/W MS lesions on brain MRI 02/15/17. Continue DISBURSING OFFICER. * Neuropathy: continue gabapentin. * Neck pain. Adequate control with acetaminophen. PT/OT modalities. * Neurogenic bowel? Continue daily bowel program. Obstruction unlikely on Abd CT. Responded to MgCitrate and enema 03/12/17. Daily enema since, but BM w/out enema today 03/14/17. Chronic/stable conditions: * Lethargy, improving. Resolved. Due to withdrawal of corticosteroids? Recent normal TSH 12/03; no other S/Sx infectious of metabolic disease. Continue to monitor. * Insomnia, Resolved. Has used zolpidem QHS since 2007, prescribed by psychiatrist who treats bipolar disorder. * Tobacco use: continue nicotine and give cessation education. She stated that she was having an occasional cigarette, and she was counseled to be cautious of concurrent cigarette use and nicotine gum use. * Voiding well; doubt neurogenic bladder. * History of bipolar, anxiety, ADHD: continue home medications, monitor closely. No SI. She gave us the contact information for her psychiatrist listed below in case we need to contact them. * Proph: ambulating well. D/C enoxaparin 03/15/17. D/C'd protonix 40 mg daily on 03/10/17 as she's no longer on steroids * Skin: No breakdown, monitor * Hypothyroid: continue levothyroxine * Code Status: Full Code * Contact: She states that she will be getting a divorce, but still designates her as the decision maker in the event she is not able Attended staffing, 15 min. D/W case mgmt, nursing, PT. OT, DISBURSING OFFICER. Discharge home 03/16/17. Outpatient DISBURSING OFFICER. Follow-up with neurologist, as well as her psychiatrist Dr. Shane Ramon, [place], [phone] 03/14/17 13:40 Subjective: No complaints. Had runny bowel movement this morning; otherwise has been using nightly enema. COnstipation resolved 2 days ago after mg citrate the day before. Objective: Vital Signs Temp Pulse Resp BP Pulse Ox 36.9 C 91 17 110/68 96 03/14/17 07:40 03/14/17 07:40 03/14/17 07:40 03/14/17 07:40 03/14/17 07:40 03/13/17 03/14/17 03/15/17 05:59 05:59 05:59 Intake Total 455 554 660 Balance 455 554 660 - Time Spent With Patient Time Spent With Patient: Greater than 35 minutes floor time today, including more than 50% of time in coordination of care during staffing meeting, and counseling patient. Physical Exam - Physical Exam General Appearance: WD/WN, alert, no apparent distress Respiratory: No respiratory distress, No accessory muscle use Abdomen: normal bowel sounds, non-tender, soft, distended Skin: normal color, warm/dry Neuro/Psych: alert, normal mood/affect, oriented x 3, other (Ambulates with 4WW , normal gait) ICD10 Worksheet Patient Problems: Problems Problem Status Onset Inability to walk Acute Lower extremity numbness Acute Multiple sclerosis exacerbation Acute Weakness of lower extremity Acute
[2017-03-14] MEDS: lamoTRIgine 100 MG TAB PO SCH (21:44)
[2017-03-14] MEDS: ARIPiprazole 5 MG TAB PO SCH (21:46)
[2017-03-14] MEDS: GABAPENTIN 300 MG CAP PO SCH (21:46)
[2017-03-14] MEDS: ZOLPIDEM TARTRATE 5 MG TAB PO SCH (21:47)
[2017-03-15] MEDS: LEVOTHYROXINE 125 MCG TAB PO SCH (06:28)
[2017-03-15] MEDS: BISACODYL 10 MG SUPP PR SCH (08:29)
[2017-03-15] MEDS: MODAFINIL 100 MG TAB PO SCH (08:30)
[2017-03-15] MEDS: GABAPENTIN 100 MG CAP PO SCH ×2 (08:30→12:36)
[2017-03-15] MEDS: LISDEXAMFETAMINE DIMESYLATE PO SCH (08:30)
[2017-03-15] MEDS: SENNOSIDES/DOCUSATE SODIUM TAB PO SCH (08:31)
[2017-03-15] MEDS: BENEFIBER/NUTRISOURCE FIBER PKT 1 EACH PO PRN (08:31)
--- NOTE | 2017-03-15 09:20 | PDOREHIP ---
Admission [facility] - Admission - 3 Day Assessment Period Admission Date/Day 1: 03/04/17 Day 2: 03/05/17 Day 3: 03/06/17 Discharge [facility] - Discharge - 3 Day Assessment Period 2 Days Prior to Anticipated Discharge Date: 03/14/17 1 Day Prior to Anticipated Discharge Date: 03/15/17 Anticipated Discharge Date: 03/16/17 - Discharge Skin Conditions Unhealed Pressure Ulcer (1 or more/Stage 1 or >)-Discharge: 0. No
--- NOTE | 2017-03-15 10:09 | SOAPPROG ---
SOAP Progress Note Assessment/Plan: Assessment: This is a 41-year-old woman with a history of multiple sclerosis now with new impairments in mobility and self-care, decline from baseline, with a new spinal cord lesion from T2 to T4, with non-traumatic SCI and functional para. 03/15/2017 working on discharge planning today, Merary will attempt to get a counselor who is familiar with multiple sclerosis and hopefully cognitive behavioral therapy. Otherwise patient is making good progress, therapy is going well. A total of 25 minutes was spent on the floor in the care of the patient, the majority of which was spent on the counseling and coordination of care regarding discharge planning. 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 Initial FIM 84; improved to 109 as of 03/14/17. Walking 300 - 400' FWW including outside. Did 12 stairs, 1 rail, I. I in room, I with ADLs. NMO antibodies negative. Physical therapy and occupational therapy for impaired mobility and self-care. Continue medications for MS management. * Cognitive impairment with mild to moderate deficits to attention, exec fn and memory. C/W MS lesions on brain MRI 02/15/17. Continue COMPUTER NETWORKER. * Neuropathy: continue gabapentin. * Neck pain. Adequate control with acetaminophen. PT/OT modalities. * Neurogenic bowel? Continue daily bowel program. Obstruction unlikely on Abd CT. Responded to MgCitrate and enema 03/12/17. Daily enema since, but BM w/out enema 03/14/17. Chronic/stable conditions: * Lethargy, improving. Resolved. Due to withdrawal of corticosteroids? Recent normal TSH 12/03; no other S/Sx infectious of metabolic disease. Continue to monitor. * Insomnia, Resolved. Has used zolpidem QHS since 2007, prescribed by psychiatrist who treats bipolar disorder. * Tobacco use: continue nicotine and give cessation education. She stated that she was having an occasional cigarette, and she was counseled to be cautious of concurrent cigarette use and nicotine gum use. * Voiding well; doubt neurogenic bladder. * History of bipolar, anxiety, ADHD: continue home medications, monitor closely. No SI. She gave us the contact information for her psychiatrist listed below in case we need to contact them. * Proph: ambulating well. D/C enoxaparin 03/15/17. D/C'd protonix 40 mg daily on 03/10/17 as she's no longer on steroids * Skin: No breakdown, monitor * Hypothyroid: continue levothyroxine * Code Status: Full Code * Contact: She states that she will be getting a divorce, but still designates her as the decision maker in the event she is not able Discharge home 03/16/17. Outpatient [facility] NETWORK[facility]. Follow-[facility] with neurologist, as [phone]. Attempting to find a counselor 03/15/17 10:06 Subjective: CC: discharge planning no acute events overnight. Patient endorses some anxiety about discharge including her decreased ability to care for her house. Additionally she is anxious about dealing with divorce proceedings when she discharges. Otherwise, she feels she is making good progress and is looking forward to going home. Working well with therapies, no new shortness of breath, chest pain, numbness, tingling, or weakness. Objective: Vital Signs Temp Pulse Resp BP Pulse Ox 36.9 C 104 H 16 111/72 94 03/15/17 08:00 03/15/17 08:00 03/15/17 08:00 03/15/17 08:00 03/15/17 08:00 03/14/17 03/15/17 03/16/17 05:59 05:59 05:59 Intake Total 554 900 Balance 554 900 - Pending Discharge Pending Discharge Within 24 Hours: Yes Pending Discharge Date: 03/16/17 Pending Discharge Time: 11:00 Physical Exam - Physical Exam General Appearance: WD/WN, alert, no apparent distress Respiratory: No respiratory distress, No accessory muscle use Cardiac/Chest: normal peripheral pulses, regular rate, rhythm, No edema Skin: normal color, warm/dry, cyanosis Extremities: No pedal edema Neuro/Psych: alert, motor weakness, sensory deficit, No normal mood/affect ( appropriately tearful when cosidering discharge home, ) ICD10 Worksheet Patient Problems: Problems Problem Status Onset Inability to walk Acute Lower extremity numbness Acute Multiple sclerosis exacerbation Acute Weakness of lower extremity Acute
[2017-03-15] MEDS: ZOLPIDEM TARTRATE 5 MG TAB PO SCH (22:18)
[2017-03-15] MEDS: ARIPiprazole 5 MG TAB PO SCH (22:18)
[2017-03-15] MEDS: lamoTRIgine 100 MG TAB PO SCH (22:19)
[2017-03-15] MEDS: GABAPENTIN 300 MG CAP PO SCH (22:20)
[2017-03-15] MEDS: GLATIRAMER ACETATE SQ SCH (22:25)
[2017-03-16] MEDS: LEVOTHYROXINE 125 MCG TAB PO SCH (06:17)
[2017-03-16 06:38] VITALS: BP 91/55; PULSE 81; RESP 18; TEMP 98.4; O2SAT 92
[2017-03-16] MEDS: GABAPENTIN 100 MG CAP PO SCH ×2 (07:33→12:25)
[2017-03-16] MEDS: SENNOSIDES/DOCUSATE SODIUM TAB PO SCH (07:34)
[2017-03-16] MEDS: MODAFINIL 100 MG TAB PO SCH (07:35)
[2017-03-16] MEDS: LISDEXAMFETAMINE DIMESYLATE PO SCH (07:40)
[2017-03-16] MEDS: BISACODYL 10 MG SUPP PR SCH (09:10)
--- NOTE | 2017-03-17 02:27 | GDS ---
[f rep st] DISCHARGE SUMMARY ADMITTING DIAGNOSIS: Multiple sclerosis flare with a thoracic spine lesion and incomplete hemiplegia. DISCHARGE DIAGNOSIS: Multiple sclerosis flare with a thoracic spine lesion and incomplete hemiplegia. PROCEDURES: None. CONSULTATIONS: None. COMPLICATIONS: None. BRIEF HISTORY AND HOSPITAL COURSE: The patient was admitted from [facility] on 03/04/2017. She had presented there on 02/28/2017 with difficulty walking. MRI showed a new spinal cord lesion at T2- T4. She was treated with 5 days of IV methylprednisolone 1 g q. day. As she had such a prominent spinal cord lesion, antibodies were drawn for neuromyelitis optica, and these came out negative. When she came to rehabilitation, she had constipation for more than 2 weeks, bladder incontinence, and some improvement in her neurologic symptoms of weakness of the lower extremities. She did, however, continue to have a sensory level at approximately T6 with no sensation to palpation over her abdomen and proximal legs. She progressed well in rehabilitation. Her initial functional independence measure was 84, consistent with assisted living level of function. She improved to 109 as of 03/14/2017, which is consistent with independent living. She was able to walk 300-400 feet using a 4-wheeled walker. She walked outside , as well. She climbed and descended 12 stairs using 1 rail independently, and she was independent in her room and independent with activities of daily living. She was noted to have mild cognitive impairment with deficits to attention, executive function, and memory and was treated by Speech and Language Pathology. There was neuropathic pain with her flare, which was treated with gabapentin. It was unclear whether or not she had neurogenic bowel. She was on a daily bowel program. There was no obstruction seen on abdominal CT. She had good clearance of her bowels with magnesium citrate on 03/12/2017, and she was discharged with a bowel regimen in the hope of a daily bowel movement. She recovered urinary continence. She did not have elevated postvoid residuals. Her bladder function was not consistent with neurogenic bladder. She had a history of tobacco use and was treated with a nicotine patch and advised on smoking cessation. She had a history of bipolar disorder, anxiety, and ADHD. She was continued on her home medications, and her emotional and psychiatric state did not present any problems. PHYSICAL EXAMINATION: VITAL SIGNS: On the day of discharge, blood pressure is 91/55, heart rate is 81, respiratory rate is 18, oxygen saturation is 92% on room air, temperature is 36.9 degrees centigrade. GENERAL: This is a well- nourished, well-developed woman, ambulating in her room with a 4-wheeled walker and comes to seated. HEART: Regular rate and rhythm with no murmurs, rubs, or gallops. LUNGS: Clear to auscultation bilaterally. ABDOMEN: Soft, nontender , nondistended with normoactive bowel sounds. EXTREMITIES: There is no cyanosis, clubbing, or edema. NEUROLOGIC: She is alert and oriented x3. Cranial nerves 2-12 are grossly intact. There is no focal weakness. Sensation is absent to light touch from the upper abdomen to the knees. Her gait is overall within normal limits using a 4-wheeled walker. DISCHARGE PLAN: Condition upon discharge is good. ACTIVITY: Ad alana. DIET: Regular. FOLLOWUP: She is to follow up with neurologist, Dr. Eric White, and primary care provider, Dr. Say Dee. MEDICATIONS UPON DISCHARGE: 1. Glycerin suppository p.r.n. 2. Senna fiber 1 p.o. b.i.d. 3. Magnesium citrate 300 mg p.o. q. day p.r.n. 4. Nicotine gum. 5. Polyethylene glycol 17 g p.o. q. day p.r.n. 6. Senna/docusate 1-2 tabs p.o. b.i.d. 7. Glatiramer acetate 40 mg subcutaneous q.2 days. 8. Lamotrigine 200 mg p.o. q.h.s. 9. Lisdexamfetamine dimesylate 70 mg p.o. q. day. 10. Aripiprazole 15 mg p.o. q.h.s. 11. Gabapentin 100 mg p.o. b.i.d. at 0800 and 1200 and 300 mg q.h.s. 12. Levothyroxine 125 mcg p.o. q. day. 13. Modafinil 200 mg p.o. q. day. 14. Zolpidem 5 mg p.o. q.h.s. ISSUES TO BE ADDRESSED AT FOLLOWUP: 1. Functional status. She will have outpatient speech and language pathology. She was also encouraged to continue to exercise. She was begun on an endurance program while at the rehab hospital to improve her functional status and her fatigue, and she can follow up with her primary care provider, as well as Neurology regarding this issue. 2. Cognitive impairment. She will continue outpatient speech and language pathology. 3. Question of neurogenic bowel. She has a bowel regimen that she can follow, and she can follow up again with her primary care provider and Neurology regarding her bowel function. 4. Multiple sclerosis. She has had frequent flares. It is my understanding that she is being considered for treatment with dimethyl fumarate, and she can follow up with her neurologist. 5. Psychiatric status was stable, and she can follow up as needed with her psychiatrist. Greater than 35 minutes were spent on this discharge, including medication reconciliation and coordination of care. /[id number]/MODL MTDD
== END 2017-03-16 13:08 | disposition home or self-care (01) | DRG 59 ==
LOC: BREH 17:50
PROVIDERS: ADMIT Internal Medicine; ATTEND Internal Medicine
PROC: F0636ZZ Communicative/Cognitive Integration Skills Treatment of Neurological System - Whole Body (ICD-10-PCS; principal; 2017-03-04)
PROC: F08Z7ZZ Vocational Activities and Functional Community or Work Reintegration Skills Treatment (ICD-10-PCS; principal; 2017-03-04)
PROC: F07M3ZZ Motor Function Treatment of Musculoskeletal System - Whole Body (ICD-10-PCS; principal; 2017-03-04)
DX: G35 Multiple sclerosis (principal); G82.22 Paraplegia, incomplete; K59.2 Neurogenic bowel, not elsewhere classified; N31.9 Neuromuscular dysfunction of bladder, unspecified; G99.8 Other specified disorders of nervous system in diseases classified elsewhere; F31.9 Bipolar disorder, unspecified; F41.9 Anxiety disorder, unspecified; F90.9 Attention-deficit hyperactivity disorder, unspecified type; E03.9 Hypothyroidism, unspecified; F17.210 Nicotine dependence, cigarettes, uncomplicated
CPT/HCPCS: 92507-GN; 92522-GN; 97110-GO; 97110-GP; 97112-GP; 97116-GP; 97161-GP; 97166-GO; 97530-GO; 97530-GP; 97532-GO; 97535-GO; 97537-GO; J1650; J2930

== ENCOUNTER → 2017-07-13 | Outpatient (CLI) | payer OTHER ==
[~2017-07-13] MED LIST: DIAZEPAM 5 MG TAB ONE
== END ==
LOC: FIMAGING 11:38
PROVIDERS: ATTEND Physician Assistant Medical
DX: G35 Multiple sclerosis (principal)

== ENCOUNTER 2017-10-17 12:41 | Inpatient (IN) | payer OTHER ==
--- NOTE | 2017-10-17 13:51 | EDPHY ---
H & P Stated Complaint: States MS flare since Sat; both legs more numb Source: Patient Exam Limitations: No limitations - Personal History LMP (Females 10-55): IUD In Place Current Tetanus Diphtheria and Acellular Pertussis (TDAP): Yes - Medical/Surgical History Hx Asthma: No Hx Chronic Respiratory Disease: No Hx Diabetes: No Hx Cardiac Disease: No Hx Renal Disease: No Hx Cirrhosis: No Hx Alcoholism: No Hx HIV/AIDS: No Hx Splenectomy or Spleen Trauma: No Other PMH: M.S since aug 2016. bipolar depression 2007 addhd,anxiety, constipation - Social History Smoking Status: Current every day smoker Time Seen by Provider: 10/17/17 13:50 HPI/ROS: HPI: This is a 42-year-old female presents with Chief Complaint: States MS flare since Sat; both legs more numb Location: Left thigh to toes Quality: Numbness/weakness Duration: Since Tuesday Signs and Symptoms: No bleeding, no radiation, no numbness, no weakness, no tingling, no incontinence, + decreased range of motion, no swelling, no pain Timing: Acute, constant Severity: Moderate to severe Context: Patient has a history of multiple sclerosis diagnosed in August 2016 , last exacerbation in February of 2017 presents today with Tuesday sleeping more proximally 2:16 p.m. and having severe fatigue and then waking up on Tuesday with left mid thigh down to her foot and toes numbness, weakness. She reports that she is walking with a limp. Her last exacerbation showed 2 new lesions in her frontal lobe. She then was referred to [place] and had a repeat MRI performed that showed improvement in these lesions. Negative VANNA. Patient denies any other symptoms including fever/chills/cough/shortness of breath/ chest pain/abdominal pain/nausea/vomiting. She denies any recent stressors. She does admit that over the weekend while she was sleeping for mid multiple hour she did not drink nearly as much fluids or ate as much as she should. Patient reports compliance on her medications especially Tecfidera twice daily. Modifying Factors: None Comment: ROS: see HPI Constitutional: No fever, no chills, no weight loss Eyes: No blurred vision Respiratory: No shortness of breath, no cough Cardiovascular: No chest pain Gastrointestinal: No nausea, no vomiting no diarrhea Genitourinary: No dysuria Extremities: No myalgias Neurologic: + weakness, + numbness Skin: No rashes Hematologic: No bruising, no bleeding MEDICAL/SURGICAL/SOCIAL HISTORY: Medical history: M.S since aug 2016. bipolar depression 2008 add/adhd, anxiety , constipation Surgical history: Denies Social history: Unemployed. . CONSTITUTIONAL: Slightly irritable but cooperative middle-aged white feet, awake and alert, no obvious distress HEENT: Atraumatic and normocephalic, PERRL, EOMI. Tympanic membranes clear. Oropharynx clear, no exudate and moist pink mucosa. Airway patent. No lymphadenopathy. No meningismus. Cardiovascular: Normal S1/S2, regular rate, regular rhythm, without murmur rub or gallop. PULMONARY/CHEST: Symmetrical and nontender. Clear to auscultation bilaterally. Good air movement. No accessory muscle usage. ABDOMEN: Soft, nondistended, nontender, no rebound, no guarding, no peritoneal signs, no masses or organomegaly. No CVAT. EXTREMITIES: 2/2 DP and PT pulses, no deformities, no clubbing, no cyanosis or edema. NEUROLOGICAL: GCS 15. Speech clear. Cranial nerves 2-12 grossly intact. Left lower extremity shows strength 3/5. Decreased sensation to left lower extremity noted. 1/5 sensation to painful stimuli to all of her toes and feet. Patient is able to lift her leg up off of the ER stretcher for brief amount of time but it quickly falls to gravity. SKIN: Warm and dry, no erythema. no rash. Good capillary refill. (Holly Johnson) Constitutional: Initial Vital Signs Temperature (C) 37 C 10/17/17 12:56 Heart Rate 92 10/17/17 12:56 Respiratory Rate 18 10/17/17 12:56 Blood Pressure 108/70 10/17/17 12:56 O2 Sat (%) 98 10/17/17 12:56 O2 Delivery Mode Room Air Allergies/Adverse Reactions: Penicillins Allergy (Mild, Verified 10/17/17 12:54) sores in mouth Home Medications: Medication Instructions Recorded Lisdexamfetamine Dimesylate 70 mg PO DAILY 03/02/17 [Vyvanse] lamoTRIgine [LamICTAL 100 MG (*)] 300 mg PO HS 03/02/17 ARIPiprazole [Abilify] 15 mg PO HS #30 tablet 03/15/17 Levothyroxine [Synthroid 125 mcg 125 mcg PO DAILY06 #30 tab 03/15/17 (*)] Modafinil [Provigil 100 mg (*)] 200 mg PO DAILY #60 tab 03/15/17 Zolpidem Tartrate [Ambien 5MG (*)] 5 mg PO HS #30 tab 03/15/17 Gabapentin [Neurontin 100 MG (*)] 100 mg PO DAILY 07/11/17 Tecfidera 240 mg PO BID 07/11/17 Polyethylene Glycol 3350 [Miralax 17 gm PO DAILY PRN 10/17/17 17 gm (*)] Medical Decision Making ED Course/Re-evaluation: Labs, urinalysis, IV medications ordered Given a 1000 mg IV Solu-Medrol upon arrival ED decision to consult for admission. Spoke with Dr. White regarding case as this is patient's primary. Also spoke with Dr. Yoder who is conventions reservationist this week and reports that he will order necessary imaging including MRI once he evaluates the patient. Spoke with hospitalist, Dr. Mcneil, who kindly agrees to admit patient and provide further care. It is to be noted that the laboratory studies have not resulted at time of consult for admission. This patient was seen under the supervision of my secondary supervising physician. I evaluated care for this patient independently. Discussed this patient with Dr. Dave who did not see the patient. (Holly Johnson) Differential Diagnosis: Differential diagnosis includes but is not limited to musculoskeletal flare, new lesion. (Holly Johnson) Other Provider: The patient was evaluated and managed by the Physician Bsw. I discussed the patient's presentation and course with the midlevel provider with them and agree with the evaluation. My co-signature indicates that I have reviewed this chart and I agree with the findings and plan of care as documented. I am the secondary supervising physician. (Fanny Dave) - Data Points Laboratory Results: Laboratory Results 10/17/17 14:15 10/17/17 14:15 10/17/17 10/17/17 10/17/17 14:20 14:15 14:15 WBC RBC Hgb Hct MCV MCH MCHC RDW Plt Count MPV Neut % (Auto) Lymph % (Auto) [place] % (Auto) Eos % (Auto) Baso % (Auto) Nucleat RBC Rel Count Absolute Neuts (auto) Absolute Lymphs (auto) Absolute Monos (auto) Absolute Eos (auto) Absolute Basos (auto) Absolute Nucleated RBC Immature Gran % Immature Gran # Sodium 142 mEq/L mEq/L (135-145) Potassium 4.4 mEq/L mEq/L (3.5-5.2) Chloride 103 mEq/L mEq/L (97-110) Carbon Dioxide 25 mEq/l mEq/l (22-31) Anion Gap 14 mEq/L mEq/L (8-16) BUN 10 mg/dL mg/dL (7-23) Creatinine 0.7 mg/dL mg/dL (0.6-1.0) Estimated GFR > 60 Glucose 93 mg/dL mg/dL (70-100) Calcium 9.9 mg/dL mg/dL (8.5-10.4) Total Bilirubin 0.5 mg/dL mg/dL (0.1-1.4) AST 23 IU/L IU/L (14-46) ALT 29 IU/L IU/L (9-52) Alkaline Phosphatase 67 IU/L IU/L (38-126) Total Protein 7.4 g/dL g/dL (6.3-8.2) Albumin 4.6 g/dL g/dL (3.5-5.0) Beta HCG, Qual NEGATIVE Urine Color YELLOW Urine Appearance MODERATELY TURBID Urine pH 8.0 H (5.0-7.5) Ur Specific [place] 1.009 (1.002-1.030) Urine Protein NEGATIVE (NEGATIVE) Urine Ketones NEGATIVE (NEGATIVE) Urine Blood NEGATIVE (NEGATIVE) Urine Nitrate NEGATIVE (NEGATIVE) Urine Bilirubin NEGATIVE (NEGATIVE) Urine Urobilinogen 2.0 EU H EU (0.2-1.0) Ur Leukocyte Esterase NEGATIVE (NEGATIVE) Urine RBC NONE SEEN /hpf /hpf (0-3) Urine WBC NONE SEEN /hpf /hpf (0-3) Ur Epithelial Cells TRACE /lpf /lpf (NONE-1+) Urine Glucose NEGATIVE (NEGATIVE) 10/17/17 14:15 WBC 6.21 10^3/uL 10^3/uL (3.80-9.50) RBC 4.71 10^6/uL 10^6/uL (4.18-5.33) Hgb 15.0 g/dL g/dL (12.6-16.3) Hct 43.7 % % (38.0-47.0) MCV 92.8 fL fL (81.5-99.8) MCH 31.8 pg pg (27.9-34.1) MCHC 34.3 g/dL g/dL (32.4-36.7) RDW 13.6 % % (11.5-15.2) Plt Count 197 10^3/uL 10^3/uL (150-400) MPV 11.5 fL fL (8.7-11.7) Neut % (Auto) 77.1 % H % (39.3-74.2) Lymph % (Auto) 15.3 % % (15.0-45.0) [place] % (Auto) 5.3 % % (4.5-13.0) Eos % (Auto) 1.0 % % (0.6-7.6) Baso % (Auto) 1.0 % % (0.3-1.7) Nucleat RBC Rel Count 0.0 % % (0.0-0.2) Absolute Neuts (auto) 4.79 10^3/uL 10^3/uL (1.70-6.50) Absolute Lymphs (auto) 0.95 10^3/uL L 10^3/uL (1.00-3.00) Absolute Monos (auto) 0.33 10^3/uL 10^3/uL (0.30-0.80) Absolute Eos (auto) 0.06 10^3/uL 10^3/uL (0.03-0.40) Absolute Basos (auto) 0.06 10^3/uL 10^3/uL (0.02-0.10) Absolute Nucleated RBC 0.00 10^3/uL 10^3/uL (0-0.01) Immature Gran % 0.3 % % (0.0-1.1) Immature Gran # 0.02 10^3/uL 10^3/uL (0.00-0.10) Sodium Potassium Chloride Carbon Dioxide Anion Gap BUN Creatinine Estimated GFR Glucose Calcium Total Bilirubin AST ALT Alkaline Phosphatase Total Protein Albumin Beta HCG, Qual Urine Color Urine Appearance Urine pH Ur Specific [place] Urine Protein Urine Ketones Urine Blood Urine Nitrate Urine Bilirubin Urine Urobilinogen Ur Leukocyte Esterase Urine RBC Urine WBC Ur Epithelial Cells Urine Glucose Medications Given: Discontinued Medications Lorazepam (Ativan Injection) 1 mg IVP ONCE ONE Stop: 10/17/17 15:26 Last Admin: 10/17/17 15:43 Dose: 1 mg Departure - Departure Disposition: [facility] Inpatient Acute Clinical Impression: Multiple sclerosis exacerbation, Lower extremity numbness Weakness of lower extremity Qualifiers: Laterality: left Qualified Code(s): R29.898 - Other symptoms and signs involving the musculoskeletal system Condition: Fair
[2017-10-17] MEDS ORDERED: methylPREDNISolone SOD SUCC 1 GM in NS 100 ML IV ONE (14:15)
[2017-10-17] MEDS ORDERED: ONDANSETRON DISINTEGRATING 4 MG TAB PO PRN (14:53)
[2017-10-17] MEDS ORDERED: ACETAMINOPHEN 325 MG TAB PO PRN (14:53)
[2017-10-17] MEDS ORDERED: ONDANSETRON 4 MG/2 ML VIAL IVP PRN (14:53)
[2017-10-17 15:24] LABS: PLATELET COUNT 197 10^3/uL (150-400)
[2017-10-17] MEDS ORDERED: LORazepam 2 MG/ML INJ IVP ONE ×2 (15:25→16:51)
[2017-10-17] MEDS ORDERED: GADOBUTROL 10 ML VIAL IVP ONE (16:37)
[2017-10-17] MEDS ORDERED: ALTEPLASE 2 MG VIAL IVP PRN (16:57)
[2017-10-17] MEDS ORDERED: POLYETHYLENE GLYCOL 3350 17 GM PKT PO PRN (16:58)
--- NOTE | 2017-10-17 17:19 | GHP ---
[f rep st] HISTORY AND PHYSICAL DATE OF ADMISSION: 10/17/2017 CHIEF COMPLAINT: Weakness and numbness of the bilateral lower extremities. HISTORY OF PRESENT ILLNESS: This is a 42-year-old female, with a history of multiple sclerosis, who presents with acute onset of worsening sensation and strength of her bilateral lower extremities, lef t more profound than right. Patient reports medication change in March 2017, when she was initiated o n Tecfidera. She reports that since that time, she has had fewer relapses and has been at a stable b aseline. Patient reports an emotional stressor with her son in the course of the last week and over the time period of dealing and managing with that situation, she had progression of symptoms of her l ower extremities. Patient denies any chest pain, any shortness of breath. Reports stable difficulty swallowing certain solids, such as watermelon. Reports no difficulty swallowing liquids. Reports b lurring of her vision. Denies any headaches. Reports stable gait instability that has been markedly worse in the past few days with the new symptoms in her lower extremities. Denies any symptoms in h er upper extremities or face. Reports normal bowel habits. Denies any blood in her urine. Reports that she has no significant sensation of urination so cannot report dysuria or not. PAST MEDICAL HISTORY: 1. Multiple sclerosis. 2. Hypothyroidism. SOCIAL HISTORY: Patient smokes a pack of cigarettes a day, is in the process of getting , mccollum s a 13-year-old son, and drinks alcohol occasionally. Denies any marijuana or illicit drugs. FAMILY HISTORY: Negative for MS. REVIEW OF SYSTEMS: A 10-point review of systems is negative with the exception of that reported in t he HPI. PHYSICAL EXAMINATION: VITAL SIGNS: Blood pressure 116/78, heart rate 83, respiratory rate 16, 98% o n room air, 36.8. GENERAL: This is a healthy-appearing young female in mild distress. HEENT: Nota ble for moist mucous membranes. Eye exam is negative for any icterus. CARDIAC: Regular rate and rh ythm. PULMONARY: Clear to auscultation bilaterally. GASTROINTESTINAL: Positive bowel sounds. Abdo men soft and nontender in all 4 quadrants. MUSCULOSKELETAL: Negative for any lower extremity edema. SKIN: Negative for any rashes. NEUROLOGIC: Cranial nerves 2-12 are grossly intact. Strength is intact in her upper extremities, 5/5 bilaterally. Sensation is diminished in her lower extremities f rom slightly above the knee and down. She has 2/5 strength of the left lower extremity and 3/5 on th e right. Gait was not examined. PSYCHIATRIC: She is anxious on the interview and examination. DATA: White count 6.2, hematocrit 43.7, platelets 197. Creatinine 0.7. Telemetry, which I personal ly reviewed and interpreted, shows sinus rhythm. ASSESSMENT AND PLAN: This is a 42-year-old female with: 1. Acute multiple sclerosis flare. Patient is being admitted. She will receive IV Solu-Medrol a gr am per day x3 days. MRI of the brain has been ordered and Neurology is being consulted. 2. Hypothyroidism. Will continue her home medications. 3. Prophylaxis, Lovenox. 4. Diet, regular. DISPOSITION: I expect greater than 2 midnights as the patient requires 3 days of Solu-Medrol treatme nt. I have discussed the case with Dr. Yoder from Neurology. He will consult and follow along. /[id number]/MODL
[2017-10-17] MEDS ORDERED: WHITE WINE 120 ML BOTTLE PO SCH (18:00)
[2017-10-17] MEDS ORDERED: lamoTRIgine 100 MG TAB PO SCH (21:00)
[2017-10-17] MEDS ORDERED: ARIPiprazole 10 MG TAB PO SCH (21:00)
[2017-10-17] MEDS ORDERED: ZOLPIDEM TARTRATE 5 MG TAB PO SCH (21:00)
[2017-10-17] MEDS ORDERED: TECFIDERA 240 MG PO SCH (21:00)
[2017-10-17] MEDS: Dimethyl Fumarate [Tecfidera] 240 MG PO SCH (21:53)
[2017-10-17] MEDS ORDERED: NICOTINE POLACRILEX 2 MG GUM B PRN (23:10)
[2017-10-17] MEDS ORDERED: GABAPENTIN 300 MG CAP PO SCH (23:45)
[2017-10-18] MEDS: NICOTINE 21 MG/24 HR PATCH TD SCH ×2 (00:15→07:59)
[2017-10-18 05:02] LABS: PLATELET COUNT 202 10^3/uL (150-400)
[2017-10-18] MEDS ORDERED: LEVOTHYROXINE 125 MCG TAB PO SCH (06:00)
--- NOTE | 2017-10-18 08:27 | PDMN ---
Medical Necessity Medical necessity: [facility] neurology-2 days MS flare pt requires 3 days IV solumedrol further monitoring.
[2017-10-18] MEDS ORDERED: ENOXAPARIN 40 MG/0.4 ML SYR SC SCH (09:00)
[2017-10-18] MEDS ORDERED: GABAPENTIN 100 MG CAP PO SCH (09:00)
[2017-10-18] MEDS ORDERED: Lisdexamfetamine Dimesylate [Vyvanse] 70 MG PO SCH (09:00)
[2017-10-18] MEDS ORDERED: MODAFINIL 100 MG TAB PO SCH (09:00)
[2017-10-18 09:25] VITALS: RESP 18
--- NOTE | 2017-10-18 09:58 | NEUROPROG ---
Assessment: [id number] - Neurology Consult: - CC: Dr. Mcneil consulted neurology for Leg weakness in setting of multiple sclerosis. Results placed in EMR for her review. - HPI: Pt with multiple sclerosis presented to [facility] ED on 10/17/17 with acute onset worsening sensation and strength of b/l legs. Pt is followed by Dr. White in our practice and is on Tecfidera for multiple sclerosis. I discussed case with him and he would like the patient to undergo 3 days of IV steroids and then f/u with him in the outpatient setting. A brain and cervical MRI showed no active enhancing lesions. PT/OT consulted. I initially saw the patient on . She reported she had noted worsening L>R leg weakness and altered sensation in her legs. At baseline she has bladder and bowel problems. 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 - PMHx: multiple sclerosis, hypothyroidism - SHx: smokes tobacco FHx: no MS - ROS: Pt denied acute fever, total vision loss, active severe chest pain, respiratory failure, total body severe rash, total bowel/bladder incontinence, psychosis, active seizures, or active bleeding - O: VS reviewed General: Alert Eyes: Fundoscopic exam not able to visualize optic disks CV: Heart RRR, no murmur, no carotid bruit Lungs: Clear to auscultation bilaterally, no rhonchi or rales Neuro: - Mental: . Oriented x person/place/date . concentration appears normal . speech fluency/comprehension normal . memory appears normal . fund of knowledge appear intact - Cranial Nerves: . II: PERRL, VFFTC . III/IV/: EOMI, no nystagmus, normal smooth pursuits, no Ptosis . V: facial sensation intact to LT . VII: face symmetric to eye closure and smile . VIII: hearing intact to conversation . IX/X: uvula raises symmetrically . XI: SCM 5/5 B/L strength . XII: tongue protrudes midline w/nl strength - Motor: . Tone: normal tone in all 4 extremity . Strength: no pronator drift, strength 5/5 throughout arms but legs are weak (difficult to determine exact degree as some fluctuating effort) - Reflexes: B/L bic/BR/patella/ach 2/4 - Sensory: all 4 extremity intact to light touch but pt feels her legs have altered sensation - Coord: [id number] wnl, LILA wnl - Gait: deferred - Labs: 10/18/17- CBC wnl, Chem Gluc 138H - Rads: 10/17/17- Brain MRI w/ and w/o con: Bilateral cerebral nonenhancing stable demyelinating plaques compatible with multiple sclerosis , without definite new or enhancing demyelinating plaques. 2. No acute infarct, acute hemorrhage, hydrocephalus, or mass effect. - 10/17/17- Cervical MRI w/ and w/o con: No evidence for demyelinating disease of the cervical spine - Assessment: 1. Leg weakness in patient with Multiple Sclerosis: Neurologic exam on 10/18/17 shows bilateral leg weakness (pt with inconsistent effort making strength grading difficult) and altered sensation in legs. Pt with known multiple sclerosis and known prior thoracic cord lesion. Brain/cervical MRI showed no enhancing lesion on 10/17/17. I will further evaluate her symptoms with a T/L MRI. Pt being treated with 3 days of IV steroids and seeing OT/PT. 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
[2017-10-18] MEDS: Dimethyl Fumarate [Tecfidera] 240 MG PO SCH (10:30)
--- NOTE | 2017-10-18 10:38 | ASMTCMCOM ---
CM Note CM Note Notes: Patient admitted for MS flare. Will have 3 days of IV Solu Medrol as well as PT/OT while inpatient. Per initial PT eval, patient is at baseline and may return home with outpatient therapy. We will continue to monitor. Patient lives with her teenaged son. CM available should any discharge needs arise. Date Signed: 10/18/2017 10:38 AM Electronically Signed By:Christine Hercules RN
[2017-10-18] MEDS ORDERED: LORazepam 2 MG/ML INJ IVP ONE (11:30)
[2017-10-18] MEDS ORDERED: methylPREDNISolone SOD SUCC 125 MG/2 ML VIAL IVP SCH ×2 (12:00)
[2017-10-18] MEDS ORDERED: methylPREDNISolone SOD SUCC 1 GM in D5W 100 ML IV SCH (12:00)
[2017-10-18] MEDS ORDERED: GADOBUTROL 10 ML VIAL IVP ONE (12:34)
[2017-10-18] MEDS ORDERED: PNEUMOCOCCAL 0.5ML VACCINE VIAL IM ONE (14:30)
[2017-10-18] MEDS ORDERED: FLU VACC QS 2017-18 (3YR+)/PF 0.5 ML SYR (FLUARIX QUAD) IM ONE (14:30)
--- NOTE | 2017-10-18 16:40 | HOSPPROG ---
Hospitalist Progress Note Assessment/Plan: ms flare 3 days pulse steroids, last two as outpt see dc summary >30 minutes Subjective: mri w no clear new lesions that ould cause sx. anxious for dc Objective: Vital Signs Temp Pulse Resp BP Pulse Ox 36.8 C 119 H 18 124/75 H 100 10/18/17 09:23 10/18/17 09:23 10/18/17 09:23 10/18/17 09:23 10/18/17 09:23 Laboratory Results 10/18/17 04:47 10/18/17 04:47 10/17/17 10/18/17 10/19/17 05:59 05:59 05:59 Intake Total 150 Output Total 700 Balance 150 -700 - Physical Exam Constitutional: no apparent distress, appears nourished Eyes: PERRL, anicteric sclera Ears, Nose, Mouth, Throat: moist mucous membranes, hearing normal Cardiovascular: regular rate and rhythym, No systolic murmur Respiratory: no respiratory distress, no rales or rhonchi Gastrointestinal: normoactive bowel sounds, soft, non-tender abdomen Genitourinary: no bladder fullness, No bran in urethra Skin: warm, normal color Musculoskeletal: full muscle strength, no muscle tenderness Neurologic: AAOx3, sensation intact bilaterally ICD10 Worksheet Patient Problems: Problems Problem Status Onset Lower extremity numbness Acute Multiple sclerosis exacerbation Acute Weakness of lower extremity Acute Inability to walk Acute
[2017-10-18 16:50] VITALS: BP 116/72; PULSE 115; TEMP 98.3; O2SAT 93
--- NOTE | 2017-10-19 17:00 | ASDISCHSUM ---
Discharge Information Plan Status:Home with No Needs Medically Cleared to Leave: Discharge Date:10/18/2017 05:20 PM CM D/C Disposition:Home, Routine, Self-Care ADT D/C Disposition:Home, Routine, Self-Care Projected Discharge Date:10/18/2017 05:20 PM Transportation at D/C:Family Discharge Delay Reason: Follow-Up Date:10/18/2017 05:20 PM Discharge Slot: Final Diagnosis: Placement Information Patient Contact Information Contact Name:MICHOACANO Relationship:Other Address:[address] Work Phone: City:[place] Alternate Phone: [facility]/Zip Code:[place] [address] Email: Financial Information Financial Class:[facility] Primary Plan Desc:[employer] [facility] Primary Plan Number:[id number] Secondary Plan Desc: Secondary Plan Number: Assessment Information [facility] CM Progress Note CM Note CM Note Notes: Patient admitted for MS flare. Will have 3 days of IV Solu Medrol as well as PT/OT while inpatient. Per initial PT eval, patient is at baseline and may return home with outpatient therapy. We will continue to monitor. Patient lives with her teenaged son. CM available should any discharge needs arise. Date Signed: 10/18/2017 10:38 AM Electronically Signed By:Christine Hercules RN Intervention Information
== END 2017-10-18 17:20 | disposition home or self-care (01) | DRG 60 ==
LOC: F1N 17:58
PROVIDERS: ADMIT Hospitalist; ATTEND Internal Medicine
PROC: 3E0333Z Introduction of Anti-inflammatory into Peripheral Vein, Percutaneous Approach (ICD-10-PCS; principal; 2017-10-17)
DX: G35 Multiple sclerosis (principal); E03.9 Hypothyroidism, unspecified; F17.210 Nicotine dependence, cigarettes, uncomplicated; Z23 Encounter for immunization
CPT/HCPCS: 97116-GP; 97161-GP; 97165-GO; A9585; J1650; J2060; J2930

== ENCOUNTER → 2017-12-16 | Outpatient (CLI) | payer OTHER ==
--- NOTE | 2017-12-20 07:12 | CPEEG ---
[f rep st] ELECTROENCEPHALOGRAM DATE OF STUDY: 12/16/2017 INTERPRETATION: This 4-hour video EEG recording is normal. There were no potentially epileptogenic abnormalities present during the awake or sleep recordings. During the video EEG monitoring session, the patient did not have any clinical events. REPORT: This 4-hour video EEG recording contains 9-10 Hz alpha activity to the posterior head region s. The background activity was normal and symmetric. There was no abnormal activation at rest, duri ng photic stimulation or hyperventilation. Patient became drowsy and fell into sustained sleep durin g the study. There was no abnormal activation during drowsiness, sleep, or during times of arousal. The patient did not have any clinical events during the video EEG monitoring session. /[id number]/MODL
== END ==
LOC: FCPNEURO 10:48
PROVIDERS: ATTEND Physician Assistant Medical
DX: G35 Multiple sclerosis (principal); R41.0 Disorientation, unspecified

== ENCOUNTER → 2018-07-31 | Outpatient (CLI) | payer OTHER | LOC: FIMAGING 18:36 | PROVIDERS: ATTEND Physician Assistant Medical | DX: G35 Multiple sclerosis (principal); M62.89 Other specified disorders of muscle ==

== ENCOUNTER → 2018-09-27 | Outpatient (CLI) | payer OTHER | LOC: FIMAGING 08:48 | PROVIDERS: ATTEND Internal Medicine | DX: I87.2 Venous insufficiency (chronic) (peripheral) (principal) ==

== ENCOUNTER 2018-11-15 14:46 | Emergency (ER) | payer OTHER ==
[2018-11-15] MEDS ORDERED: NS 500 ML IV ONE (15:29)
--- NOTE | 2018-11-15 15:48 | EDPHY ---
H & P Time Seen by Provider: 11/15/18 15:18 HPI/ROS: HPI MS flare. 43-year-old female by private vehicle. She has a history of MS. She presents to the emergency department stating that for the last 2 days she has had increased confusion, fatigue, a sensation of heaviness in both legs and numbness in both legs. Greater on the left side versus the right side. Her left side usually is greater than her left side. She spoke with physician assistant Duncan who works under Dr. Eric White of the neurology service, she was told to come to the emergency department for evaluation. ROS: Constitutional: No fever, no chills. As above. Eyes: No discharge. No changes in vision. ENT: No sore throat. No nasal congestion or rhinorrhea. Respiratory: No cough. No shortness of breath. Cardiac: No chest pain, no palpitations. Gastrointestinal: No abdominal pain, no vomiting, no diarrhea. Genitourinary: No hematuria. No dysuria or increased frequency with urination. Musculoskeletal: No back pain. No neck pain. No myalgias or arthralgias. Skin: No rashes. Neurological: No headache. As above. Past medical history: MS since August of 2016, bipolar, depression, anxiety, constipation, fatigue. Social history: She is here by herself. No alcohol. Nonsmoker. Physical Exam: General Appearance: Alert, no distress. This patient is responding to questions appropriately and in full sentences. This patient appears well- hydrated and well-nourished. Eyes: Pupils equal and round no pallor or injection. No lid edema, erythema or injection. Respiratory: There are no retractions, lungs are clear to auscultation with good air movement bilaterally. Cardiovascular: Regular rate and rhythm. No murmur. Gastrointestinal: Abdomen is soft and nontender, no masses, bowel sounds normal. No focal tenderness at McBurney's point. No Small sign. Neurological: She has vague paresthesia bilateral lower extremities in all dermatomes. Motor strength is symmetrical in the bilateral lower extremities and bilateral upper extremities. Cranial nerves are normal. She is alert and oriented x3. Gait is normal. Cerebellar function is normal. Skin: Warm and dry, no rashes. Musculoskeletal: Neck is supple and nontender. Extremities are symmetrical. All joints range without pain or impingement. Psychiatric: No agitation. No depression. Database: EKG: Imaging: Procedures: Emergency department course: Triage vital signs reviewed and are normal. Dr. Eric White of the neurology service paged at 3:40 p.m. To consult on further management. 4:10 p.m., I spoke with Dr. Eric White. Patient's presentation and case discussed in detail with him. He recommends that we give the patient 1000 mg of IV Solu-Medrol in the emergency department now. He feels the patient can then be discharged to home. He will see this patient in his office tomorrow to manage further. He does not recommend that we get imaging at this time. This plan was discussed with the patient and her significant other who is now in the room. They are both in agreement. The patient will be given 1000 mg of IV Solu -Medrol. 5:30 p.m., the patient has received her 1000 mg of IV Solu-Medrol. Repeat neurologic Assessment is unchanged from above. She will follow up with Dr. Eric White tomorrow for re-evaluation. She feels comfortable with this plan. She will be discharged with her who is in the room. Return to emergency department precautions have been reviewed with the 2 of them. All of their questions were answered. The patient was discharged in good condition with her . Differential Diagnosis: The differential diagnosis on this patient includes but is not limited to MS exacerbation. This represents a partial list of diagnoses considered. These considerations are based on history, physical exam, past history, reassessment and diagnostic testing. Smoking Status: Current every day smoker Constitutional: Initial Vital Signs Temperature (C) 36.6 C 11/15/18 14:57 Heart Rate 90 11/15/18 14:57 Respiratory Rate 18 11/15/18 14:57 Blood Pressure 109/69 11/15/18 14:57 O2 Sat (%) 99 11/15/18 14:57 O2 Delivery Mode Room Air Allergies/Adverse Reactions: Penicillins Allergy (Mild, Verified 11/15/18 14:57) sores in mouth Home Medications: Medication Instructions Recorded Lisdexamfetamine Dimesylate 70 mg PO DAILY 03/02/17 [Vyvanse] lamoTRIgine [LamICTAL 100 MG (*)] 300 mg PO HS 03/02/17 ARIPiprazole [Abilify] 15 mg PO HS #30 tablet 03/15/17 Levothyroxine [Synthroid 125 mcg 125 mcg PO DAILY06 #30 tab 03/15/17 (*)] Modafinil [Provigil 100 mg (*)] 200 mg PO DAILY #60 tab 03/15/17 Zolpidem Tartrate [Ambien 5MG (*)] 5 mg PO HS #30 tab 03/15/17 Gabapentin [Neurontin 100 MG (*)] 100 mg PO DAILY 07/11/17 Dimethyl Fumarate [Tecfidera] 240 mg PO BID 10/17/17 Gabapentin [Neurontin 300 MG (*)] 300 mg PO HS 10/17/17 Polyethylene Glycol 3350 [Miralax 17 gm PO DAILY PRN 10/17/17 17 gm (*)] methylPREDNISolone SOD SUCC 1 gm IV DAILY vial 10/18/17 [Solu-Medrol 1 gm (*)] Medical Decision Making - Data Points Laboratory Results: Laboratory Results 11/15/18 16:53 11/15/18 16:53 11/15/18 11/15/18 16:53 16:53 WBC 7.40 10^3/uL 10^3/uL (3.80-9.50) RBC 4.71 10^6/uL 10^6/uL (4.18-5.33) Hgb 15.6 g/dL g/dL (12.6-16.3) Hct 46.2 % % (38.0-47.0) MCV 98.1 fL fL (81.5-99.8) MCH 33.1 pg pg (27.9-34.1) MCHC 33.8 g/dL g/dL (32.4-36.7) RDW 12.9 % % (11.5-15.2) Plt Count 196 10^3/uL 10^3/uL (150-400) MPV 11.1 fL fL (8.7-11.7) Neut % (Auto) 79.1 % H % (39.3-74.2) Lymph % (Auto) 11.9 % L % (15.0-45.0) [place] % (Auto) 6.1 % % (4.5-13.0) Eos % (Auto) 1.9 % % (0.6-7.6) Baso % (Auto) 0.7 % % (0.3-1.7) Nucleat RBC Rel Count 0.0 % % (0.0-0.2) Absolute Neuts (auto) 5.86 10^3/uL 10^3/uL (1.70-6.50) Absolute Lymphs (auto) 0.88 10^3/uL L 10^3/uL (1.00-3.00) Absolute Monos (auto) 0.45 10^3/uL 10^3/uL (0.30-0.80) Absolute Eos (auto) 0.14 10^3/uL 10^3/uL (0.03-0.40) Absolute Basos (auto) 0.05 10^3/uL 10^3/uL (0.02-0.10) Absolute Nucleated RBC 0.00 10^3/uL 10^3/uL (0-0.01) Immature Gran % 0.3 % % (0.0-1.1) Immature Gran # 0.02 10^3/uL 10^3/uL (0.00-0.10) Sodium 138 mEq/L mEq/L (135-145) Potassium 4.4 mEq/L mEq/L (3.5-5.2) Chloride 106 mEq/L mEq/L (97-110) Carbon Dioxide 24 mEq/l mEq/l (22-31) Anion Gap 8 mEq/L mEq/L (6-14) BUN 11 mg/dL mg/dL (7-23) Creatinine 0.6 mg/dL mg/dL (0.6-1.0) Estimated GFR > 60 Glucose 82 mg/dL mg/dL (70-100) Calcium 9.4 mg/dL mg/dL (8.5-10.4) Medications Given: Discontinued Medications Sodium Chloride (Ns) 500 mls @ 0 mls/hr IV EDNOW ONE; Wide Open PRN Reason: Protocol Stop: 11/15/18 15:30 Last Admin: 11/15/18 16:15 Dose: Not Given Methylprednisolone Sodium Succinate 1 gm/ Sodium Chloride 108 mls @ 108 mls/hr IV EDNOW ONE Stop: 11/15/18 17:09 Last Admin: 11/15/18 16:55 Dose: 108 mls Departure - Departure Disposition: Home, Routine, Self-Care Clinical Impression: Multiple sclerosis exacerbation Condition: Good Instructions: Multiple Sclerosis (DC) Additional Instructions: Read and follow provided instructions. Follow-up with Neurology, Dr. Eric White, as discussed. Call his office at 9:00 a.m. Tomorrow morning. They will get you in to be seen tomorrow. I spoke with Dr. White regarding her condition personally. Return to the emergency department for worsening symptoms or other serious concerns. Referrals: Eric White MD [Medical Doctor] - As per Instructions
[2018-11-15] MEDS ORDERED: methylPREDNISolone SOD SUCC 1 GM in NS 100 ML IV ONE (16:10)
[2018-11-15 16:58] LABS: PLATELET COUNT 196 10^3/uL (150-400)
[2018-11-15 17:41] VITALS: BP 103/52
== END 2018-11-15 17:52 | disposition home or self-care (01) ==
DX: G35 Multiple sclerosis (principal)
CPT/HCPCS: 96365; J2930

== ENCOUNTER → 2019-01-17 | Outpatient (CLI) | payer OTHER, MEDICAID | LOC: FIMAGING 13:17 | PROVIDERS: ATTEND Physician Assistant Medical | DX: M62.81 Muscle weakness (generalized) (principal); G35 Multiple sclerosis | CPT/HCPCS: 70551-PN ==